=== PATIENT | male | born 1965 ===

== ENCOUNTER 2017-11-08 06:56 | Inpatient (IN) | payer MEDICAID ==
[2017-11-08] MEDS ORDERED: Sodium Chloride 0.9% 1,000 ML IV STA (07:27)
[2017-11-08] MEDS ORDERED: Iohexol 240 (50 ml) PO ONE (07:27)
--- NOTE | 2017-11-08 07:50 | ED PDOC ---
HPI: Abdomen Time Seen by Provider: 11/08/17 07:12 Chief Complaint (Nursing): Abdominal Pain Chief Complaint (Provider): abdominal pain History Per: Patient History/Exam Limitations: no limitations Onset/Duration Of Symptoms: Days (x1 week), Intermittent Episodes, Worse Since ( yesterday) Outside of [place] travel?: No Current Symptoms Are (Timing): Still Present Location Of Pain/Discomfort: Diffuse Quality Of Discomfort: "Pain" Associated Symptoms: denies: Fever, Chills, Nausea, Vomiting, Diarrhea, Back Pain, Chest Pain, Urinary Symptoms (dysuria) Additional Complaint(s): Rico De is a 52 year old male, with no significant past medical history, who presents to the emergency department complaining of a diffuse abdominal pain onset for x1 week. Patient states pain begins on the right side but spreads diffusely to the abdomen. He reports having a similar pain x1 week ago which resolved on its own but states pain came back yesterday and worsened which prompted ED visit. Patient took milk of magnesia but with no relief. He denies any recent travel or new foods. He denies any back pain, nausea, vomit, diarrhea, dysuria, testicular pain, headache, dizziness, numbness or tingling, weakness, chest pain or shortness of breath. No further medical complaints. PMD: [facility] [place] Past Medical History Reviewed: Historical Data, Nursing Documentation, Vital Signs Vital Signs: Last Vital Signs Temp 97.7 F 11/08/17 07:48 Pulse 61 11/08/17 07:48 Resp 18 11/08/17 07:48 BP 160/75 H 11/08/17 07:48 Pulse Ox 98 11/08/17 07:48 - Medical History PMH: No Chronic Diseases - Surgical History Surgical History: No Surg Hx - Family History Family History: States: No Known Family Hx - Social History Current smoker - smoking cessation education provided: No Alcohol: Social Drugs: Denies - Home Medications Home Medications: Ambulatory Orders Medication Instructions Recorded No Known Home Med 11/08/17 - Allergies Allergies/Adverse Reactions: Allergies Allergy/AdvReac Type Severity Reaction Status Date / Time No Known Allergies Allergy Verified 11/08/17 07:25 Review of Systems ROS Statement: Except As Marked, All Systems Reviewed And Found Negative Constitutional: Negative for: Fever, Chills Cardiovascular: Negative for: Chest Pain Respiratory: Negative for: Shortness of Breath Gastrointestinal: Positive for: Abdominal Pain. Negative for: Nausea, Vomiting , Diarrhea Genitourinary Male: Negative for: Dysuria, Scrotal Pain Musculoskeletal: Negative for: Back Pain Neurological: Negative for: Weakness, Numbness, Headache, Dizziness Physical Exam - Reviewed Nursing Documentation Reviewed: Yes Vital Signs Reviewed: Yes - Physical Exam Appears: Positive for: Non-toxic Head Exam: Positive for: ATRAUMATIC, NORMOCEPHALIC Skin: Positive for: Normal Color, Warm, Dry Eye Exam: Positive for: Normal appearance, EOMI, PERRL Neck: Positive for: Painless ROM Cardiovascular/Chest: Positive for: Regular Rate, Rhythm. Negative for: Murmur Respiratory: Positive for: Normal Breath Sounds. Negative for: Respiratory Distress Gastrointestinal/Abdominal: Positive for: Tenderness (right sided ) Back: Negative for: L CVA Tenderness, R CVA Tenderness, Vertebral Tenderness Extremity: Positive for: Normal ROM (upper and lower extremities). Negative for : Deformity, Swelling Neurologic/Psych: Positive for: Alert, Oriented. Negative for: Motor/Sensory Deficits - Laboratory Results Result Diagrams: 11/08/17 07:46 11/08/17 07:46 Interpretation Of Abn Labs: 3.3 lactate - Progress ED Course And Treament: 1250: Stable. AAOx3. Appendicitis and possible neoplasm. Surgery to see pt. Resident aware. Hospitalist jaz. Medical Decision Making Medical Decision Making: Time: 07:12 Initial Impression: abdominal pain Initial plan: --VBG --Abd Pelvis PO & IV Contrast [CT] --CMP --Lipase --Urine dip --CBC w/ differential --Omnipaque 240 50 ml PO --Toradol 15 mg IVP --Sodium Chloride 1,000 ml IV 1,000 mls/hr --Blood culture --Reevaluation Scribe Attestation: Documented by Yaw Merritt acting as a scribe for Michi Bird MD. Scribe Attestation: All medical record entries made by the Scribe were at my direction and personally dictated by me. I have reviewed the chart and agree that the record accurately reflects my personal performance of the history, physical exam, medical decision making, and the department course for this patient. I have also personally directed, reviewed, and agree with the discharge instructions and disposition. Disposition - Clinical Impression Clinical Impression: Appendicitis, Colon neoplasm - Patient ED Disposition Is Patient to be Admitted: Yes - Disposition Disposition Time: 12:58 Condition: FAIR - Pt Status Changed To: Hospital Disposition Of: Inpatient - Admit Certification Admit to Inpatient:: After my assessment, the patient will require hospitalization for at least two midnights. This is because of the severity of symptoms shown, intensity of services needed, and/or the medical risk in this patient being treated as an outpatient. - POA Present On Arrival: None
[2017-11-08 07:54] LABS: BASO # 0.1 K/uL (0.0-0.2); BASO % 0.8 % (0.0-2.0); EOS # 0.4 K/uL (0.0-0.7); EOS % 3.5 % (0.0-4.0); HEMOGLOBIN 15.8 g/dL (12.0-18.0); LYMPH # 1.8 K/uL (1.0-4.3); LYMPH % 16.7 % (20.0-40.0); MEAN CORPUSCULAR HEMOGLOBIN 28.8 pg (27.0-31.0); MEAN CORPUSCULAR HGB CONC 33.5 g/dL (33.0-37.0); MEAN PLATELET VOLUME 8.2 fl (7.2-11.7); MONO # 0.7 K/uL (0.0-0.8); MONO % 6.7 % (0.0-10.0); NEUT # 7.8 K/uL (1.8-7.0); NEUT % 72.3 % (50.0-75.0); RBC 5.47 Mil/uL (4.40-5.90); RED CELL DISTRIBUTION WIDTH 14.1 % (11.5-14.5); WHITE BLOOD COUNT 10.8 K/uL (4.8-10.8)
[2017-11-08 08:04] LABS: CALCIUM 9.5 mg/dL (8.4-10.2); GFR AFRICAN-AMERICAN > 60; GFR NON-AFRICAN AMERICAN > 60; LIPASE 57 U/L (23-300)
[2017-11-08 08:05] LABS: ALB/GLOB RATIO 1.2 (1.0-2.1); ALBUMIN 4.4 g/dL (3.5-5.0); ALT/SGPT 27 U/L (21-72); AST/SGOT 51 U/L (17-59); BLOOD UREA NITROGEN 13 mg/dl (9-20)
[2017-11-08 08:14] LABS: VENOUS BLOOD GAS BASE EXCESS 3.4 mmol/L (0.0-2.0); VENOUS BLOOD GAS PCO2 36 mmHg (40-60); VENOUS BLOOD GAS PO2 30 mm/Hg (30-55); VENOUS BLOOD PH 7.48 (7.32-7.43)
[2017-11-08] MEDS ORDERED: Iohexol 300 100 ML IJ ONE (08:54)
[2017-11-08] MEDS ORDERED: Sodium Chloride 0.9% 50 ML IV ONE (08:55)
--- NOTE | 2017-11-08 12:47 | CT ---
PROCEDURE: CT Abdomen and Pelvis with contrast HISTORY: abd pain COMPARISON: None. TECHNIQUE: Contrast dose: 95 mL Omnipaque 300 Radiation dose: Total exam DLP = 591.44 mGy-cm. This CT exam was performed using one or more of the following dose reduction techniques: Automated exposure control, adjustment of the mA and/or kV according to patient size, and/or use of iterative reconstruction technique. FINDINGS: LOWER THORAX: Unremarkable. LIVER: Normal size, contour and attenuation. Nonspecific 2.5 cm roughly ovoid lesion in the right hepatic lobe, for which further evaluation is advised on a nonemergent basis with multiphasic contrast-enhanced CT. No other hepatic mass identified. No biliary ductal dilatation. GALLBLADDER AND BILE DUCTS: Unremarkable. PANCREAS: Unremarkable. No gross lesion or ductal dilatation. SPLEEN: Unremarkable. ADRENALS: Unremarkable. No mass. KIDNEYS AND URETERS: 3 mm nonobstructing calculus lower pole right kidney and 3 mm nonobstructing calculus upper pole left kidney. No renal mass. No hydronephrosis. VASCULATURE: Unremarkable. No aortic aneurysm. BOWEL: Apple-core lesion of the mid ascending colon suspicious for neoplasm. This could also represent a focal colitis, however. Pericolonic inflammatory change is noted. Shotty subcentimeter pericolonic lymph nodes are identified. This is a nonspecific finding. There is a very small hiatal hernia. There is no bowel obstruction. There is minimal diverticulosis of the sigmoid colon. There is also mild mural thickening of the terminal ileum, again nonspecific. Differential diagnosis includes inflammatory bowel disease or infection. APPENDIX: The appendix is distended. The proximal aspect is filled with oral contrast material. However, the distal aspect is filled with low attenuation fluid and 8 tiny amount of gas. The appendix measures approximately 7 mm in diameter. There is no pham periappendiceal inflammatory change noted. Nevertheless, the findings are concerning for acute appendicitis. PERITONEUM: Unremarkable. No free fluid. No free air. LYMPH NODES: Unremarkable. No enlarged lymph nodes. BLADDER: Unremarkable. REPRODUCTIVE: Normal prostate BONES: No acute fracture. OTHER FINDINGS: None. IMPRESSION: Findings concerning for acute appendicitis. Findings concerning for neoplasm of the mid ascending colon. Recommend further evaluation with colonoscopy. Please correlate clinically for appendicitis. No periappendiceal abscess. Mural thickening of the terminal ileum, a nonspecific finding. See above. 2.5 cm low-attenuation lesion of the right hepatic lobe. Recommend nonemergent evaluation with multiphasic contrast enhanced CT. Additional minor findings as above.
[2017-11-08] MEDS ORDERED: Piperacillin/Tazobact 3.375 GM in Sodium Chloride 0.9% 100 ML IV STA (12:50)
[2017-11-08] MEDS ORDERED: Piperacillin/Tazobact 3.375 gm Inj IVPB ONE (12:57)
--- NOTE | 2017-11-08 13:50 | CP.PCM.CON ---
History of Present Illness - History of Present Illness History of Present Illness: Surgery Consult note. Dr. Vuong 52yo M with no significant PMHx here for evaluation of abdominal pain. Patient states that he has been having symptoms for the past 2 weeks. Initially, it began with some constipation and he took 1 bottle of Mag Citrate and started having regular bowel movements since then. For the past 4 days, he states that he has been having colicky, sharp RLQ pain which has been gradually getting worse, does not radiate. No associated N/V. No Diarrhea. Reports normal bowel movements, no bowel caliber changes. Denies any fevers, does report chills. Nothing makes the pain better or worse. Denies any recent weight gain or weight loss. No changes in appetite. No urinary complaints. Denies any Colonoscopy in the past. PMHx: Denies PSHx: Denies Family Hx: Son (26 years old) - Abdominal wall sarcoma. Denies any family history of Colon CA. Social Hx: Current smoker. Social ETOH use. Denies illicit drugs NKDA Review of Systems - Review of Systems All systems: reviewed and no additional remarkable complaints except - Constitutional Constitutional: Chills. absent: Fever, Increased Appetite, Weight Loss - Cardiovascular Cardiovascular: absent: Chest Pain, Dyspnea - Respiratory Respiratory: absent: Cough, Chest Congestion - Gastrointestinal Gastrointestinal: Abdominal Pain, Constipation. absent: Diarrhea, Loose Stools , Nausea, Vomiting - Genitourinary Genitourinary: absent: Difficulty Urinating, Dysuria - Musculoskeletal Musculoskeletal: absent: Back Pain Past Patient History - Infectious Disease Hx of Infectious Diseases: None - Past Medical History & Family History Past Medical History?: Yes - Past Social History Smoking Status: Current Some Days Smoker Alcohol: Social Drugs: Denies - PSYCHIATRIC Hx Substance Use: No - SURGICAL HISTORY Hx Surgeries: No - ANESTHESIA Hx Anesthesia: No Meds Allergies/Adverse Reactions: Allergies Allergy/AdvReac Type Severity Reaction Status Date / Time No Known Allergies Allergy Verified 11/08/17 07:25 - Medications Medications: Current Medications Piperacillin Sod/Tazobactam (Sod 3.375 gm/ Sodium Chloride) 100 mls @ 100 mls/ hr IV STAT STA PRN Reason: Protocol Stop: 11/08/17 13:49 Last Admin: 11/08/17 13:02 Dose: 100 mls/hr Physical Exam - Constitutional Appears: Well, Non-toxic, No Acute Distress - Head Exam Head Exam: ATRAUMATIC, NORMAL INSPECTION, NORMOCEPHALIC - Eye Exam Eye Exam: EOMI, Normal appearance - ENT Exam ENT Exam: Mucous Membranes Moist, Normal Exam - Respiratory Exam Respiratory Exam: NORMAL BREATHING PATTERN. absent: Accessory Muscle Use, Respiratory Distress - Cardiovascular Exam Cardiovascular Exam: RRR. absent: JVD - GI/Abdominal Exam GI & Abdominal Exam: Soft. absent: Firm, Guarding, Mass, Rebound Additional comments: mild distention. soft, non-tender to deep palpation. No rebound, no guarding. No peritoneal signs. - Extremities Exam Extremities exam: Positive for: normal inspection. Negative for: calf tenderness - Neurological Exam Neurological exam: Alert, Oriented x3 - Skin Skin Exam: Dry, Intact, Normal Color, Warm Results - Vital Signs Recent Vital Signs: Last Vital Signs Temp 97.7 F 11/08/17 07:48 Pulse 61 11/08/17 07:48 Resp 18 11/08/17 07:48 BP 160/75 H 11/08/17 07:48 Pulse Ox 98 11/08/17 07:48 - Labs Result Diagrams: 11/08/17 07:46 11/08/17 07:46 Labs: Laboratory Results - last 24 hr 11/08/17 11/08/17 11/08/17 07:46 07:46 08:00 WBC 10.8 RBC 5.47 Hgb 15.8 Hct 47.0 MCV 86.0 MCH 28.8 MCHC 33.5 RDW 14.1 Plt Count 253 MPV 8.2 Neut % (Auto) 72.3 Lymph % (Auto) 16.7 L Anderson % (Auto) 6.7 Eos % (Auto) 3.5 Baso % (Auto) 0.8 Neut # (Auto) 7.8 H Lymph # (Auto) 1.8 Anderson # (Auto) 0.7 Eos # (Auto) 0.4 Baso # (Auto) 0.1 pO2 30 VBG pH 7.48 H VBG pCO2 36 L VBG HCO3 26.7 VBG Total CO2 27.9 VBG O2 Sat (Calc) 71.7 H VBG Base Excess 3.4 H VBG Potassium 3.9 Glucose 147 H Lactate 3.3 H FiO2 21.0 Sodium 141 136.0 Potassium 5.1 H Chloride 101 106.0 Carbon Dioxide 24 Anion Gap 21 H BUN 13 Creatinine 0.9 Est GFR ( Amer) > 60 Est GFR (Non-Af Amer) > 60 Random Glucose 134 H Calcium 9.5 Total Bilirubin 1.2 AST 51 ALT 27 Alkaline Phosphatase 68 Total Protein 8.0 Albumin 4.4 Globulin 3.6 Albumin/Globulin Ratio 1.2 Lipase 57 Venous Blood Potassium 3.9 Assessment & Plan - Assessment and Plan (Free Text) Assessment: 52yo M with Abdominal pain, constipation. - CT Abd/Pelvis noted: suspicious findings of an Apple core lesion in the ascending colon. Mildly dilated cecum. No colonic obstruction. Some PO contrast in the proximal portion of the appendix, mild inflammatory changes of the distal appendix, dilated to 7mm. No apparent periappendiceal fat stranding. Plan: - NPO for now - IV Abx - IVF - f/u CEA level - f/u AM labs - Recommend GI eval. May benefit from colonoscopy. - We will follow patient's clinical status and make recommendations as warranted Further recs as per Dr. Jessica Chaparro PGY1 surgery pager: [phone]
--- NOTE | 2017-11-08 16:40 | CP.PCM.HP ---
History of Present Illness - History of Present Illness History of Present Illness: 52 yo male with no significant PMH came in complaining of RLQ pain, on and off, for the past 2 weeks. Denied fever, chills, nausea or vomiting. Present on Admission - Present on Admission Any Indicators Present on Admission: No History of DVT/PE: No History of Uncontrolled Diabetes: No Urinary Catheter: No Decubitus Ulcer Present: No Review of Systems - Review of Systems All systems: reviewed and no additional remarkable complaints except (aside from those mentioned above, 12 point system review were negative by me) Past Patient History - Infectious Disease Hx of Infectious Diseases: None - Past Medical History & Family History Past Medical History?: Yes - Past Social History Smoking Status: Current Some Days Smoker Alcohol: Social Drugs: Denies - CARDIAC Hx Cardiac Disorders: No - PULMONARY Hx Respiratory Disorders: No - NEUROLOGICAL Hx Neurological Disorder: No - HEENT Hx HEENT Problems: No - RENAL Hx Chronic Kidney Disease: No - ENDOCRINE/METABOLIC Hx Endocrine Disorders: No - HEMATOLOGICAL/ONCOLOGICAL Hx Blood Disorders: No - INTEGUMENTARY Hx Dermatological Problems: No - MUSCULOSKELETAL/RHEUMATOLOGICAL Hx Musculoskeletal Disorders: No - GASTROINTESTINAL Hx Gastrointestinal Disorders: No - GENITOURINARY/GYNECOLOGICAL Hx Genitourinary Disorders: No - PSYCHIATRIC Hx Psychophysiologic Disorder: No Hx Substance Use: No - SURGICAL HISTORY Hx Surgeries: No - ANESTHESIA Hx Anesthesia: No Meds Allergies/Adverse Reactions: Allergies Allergy/AdvReac Type Severity Reaction Status Date / Time No Known Allergies Allergy Verified 11/08/17 07:25 Physical Exam - Constitutional Appears: No Acute Distress - Head Exam Head Exam: ATRAUMATIC - Eye Exam Eye Exam: absent: Scleral icterus - ENT Exam ENT Exam: Mucous Membranes Moist - Neck Exam Neck exam: Negative for: Meningismus - Respiratory Exam Respiratory Exam: absent: Rales, Rhonchi, Wheezes, Respiratory Distress - Cardiovascular Exam Cardiovascular Exam: REGULAR RHYTHM, +S1, +S2 - GI/Abdominal Exam GI & Abdominal Exam: Soft. absent: Tenderness - Rectal Exam Rectal Exam: Deferred - Extremities Exam Extremities exam: Negative for: calf tenderness, pedal edema - Back Exam Back exam: NORMAL INSPECTION - Neurological Exam Neurological exam: Alert, Oriented x3 - Psychiatric Exam Psychiatric exam: Normal Affect - Skin Skin Exam: Dry, Intact Results - Vital Signs Recent Vital Signs: Last Vital Signs Temp 98.2 F 11/08/17 16:20 Pulse 65 11/08/17 16:20 Resp 18 11/08/17 16:20 BP 138/85 11/08/17 16:20 Pulse Ox 99 11/08/17 16:20 - Labs Result Diagrams: 11/08/17 07:46 11/08/17 07:46 Labs: Laboratory Results - last 24 hr 11/08/17 11/08/17 11/08/17 07:46 07:46 08:00 WBC 10.8 RBC 5.47 Hgb 15.8 Hct 47.0 MCV 86.0 MCH 28.8 MCHC 33.5 RDW 14.1 Plt Count 253 MPV 8.2 Neut % (Auto) 72.3 Lymph % (Auto) 16.7 L [place] % (Auto) 6.7 Eos % (Auto) 3.5 Baso % (Auto) 0.8 Neut # (Auto) 7.8 H Lymph # (Auto) 1.8 [place] # (Auto) 0.7 Eos # (Auto) 0.4 Baso # (Auto) 0.1 pO2 30 VBG pH 7.48 H VBG pCO2 36 L VBG HCO3 26.7 VBG Total CO2 27.9 VBG O2 Sat (Calc) 71.7 H VBG Base Excess 3.4 H VBG Potassium 3.9 Glucose 147 H Lactate 3.3 H FiO2 21.0 Sodium 141 136.0 Potassium 5.1 H Chloride 101 106.0 Carbon Dioxide 24 Anion Gap 21 H BUN 13 Creatinine 0.9 Est GFR ( Amer) > 60 Est GFR (Non-Af Amer) > 60 Random Glucose 134 H Calcium 9.5 Total Bilirubin 1.2 AST 51 ALT 27 Alkaline Phosphatase 68 Total Protein 8.0 Albumin 4.4 Globulin 3.6 Albumin/Globulin Ratio 1.2 Lipase 57 Venous Blood Potassium 3.9 Assessment & Plan - Assessment and Plan (Free Text) Assessment: 52 yo male with no significant PMH came in complaining of RLQ pain, on and off, for the past 2 weeks. Denied fever, chills, nausea or vomiting. 1. Acute Appendicitis appendix was distended but not inflammed continue Zosyn 1gm IV q 6hrs surgical consult called by ER maintain NPO IV hydration with NSS 125cc/hr 2. Colon Neoplasm GI consult with Dr Mtz
[2017-11-08] MEDS: Sodium Chloride 0.9% 1,000 ML IV SCH ×2 (20:16→23:30)
[2017-11-08] MEDS: Piperacillin/Tazobact 3.375 GM in Sodium Chloride 0.9% 100 ML IVPB SCH (21:15)
[2017-11-09] MEDS: Piperacillin/Tazobact 3.375 GM in Sodium Chloride 0.9% 100 ML IVPB SCH ×4 (03:41→21:25)
[2017-11-09 06:21] LABS: BASO % 0.6 % (0.0-2.0); EOS # 0.4 K/uL (0.0-0.7); EOS % 6.4 % (0.0-4.0); HEMOGLOBIN 14.6 g/dL (12.0-18.0); LYMPH # 1.5 K/uL (1.0-4.3); LYMPH % 26.6 % (20.0-40.0); MEAN CELL VOLUME 86.7 fl (80.0-94.0); MEAN CORPUSCULAR HEMOGLOBIN 28.5 pg (27.0-31.0); MEAN CORPUSCULAR HGB CONC 32.9 g/dL (33.0-37.0); MEAN PLATELET VOLUME 7.9 fl (7.2-11.7); MONO # 0.5 K/uL (0.0-0.8); MONO % 9.6 % (0.0-10.0); NEUT # 3.3 K/uL (1.8-7.0); NEUT % 56.8 % (50.0-75.0); NRBC % 0.1 % (0.0-0.0); RBC 5.12 Mil/uL (4.40-5.90); RED CELL DISTRIBUTION WIDTH 14.2 % (11.5-14.5); WHITE BLOOD COUNT 5.7 K/uL (4.8-10.8)
[2017-11-09] MEDS: Sodium Chloride 0.9% 1,000 ML IV SCH ×3 (06:24→15:32)
[2017-11-09 06:58] LABS: ALB/GLOB RATIO 1.2 (1.0-2.1); ALBUMIN 3.6 g/dL (3.5-5.0); ALT/SGPT 27 U/L (21-72); AST/SGOT 33 U/L (17-59); BLOOD UREA NITROGEN 10 mg/dl (9-20); CALCIUM 8.7 mg/dL (8.4-10.2); GFR AFRICAN-AMERICAN > 60; GFR NON-AFRICAN AMERICAN > 60
--- NOTE | 2017-11-09 08:22 | CP.PCM.CON ---
<Natali Gilbert - Last Filed: 11/09/17 10:24> History of Present Illness - History of Present Illness History of Present Illness: PGY4 Initial GI Consult Note Rico De is a 52M w/ no sig medical hx who presents to the ER due to abd pain. Pain is located in the RLQ. He notes that it initially started 2 weeks prior. It was initially gradual in onset, which then progressed to 10 out of 10 pain. He proceeded to take mag citrate which resolved his symptoms after a large BM. After 2 weeks, his abd again returned at the same location. In the interim. Pt notes his BMs are daily and his last one was yesterday. Denies any blood or melena. Denies any weightloss. Never had a colonoscopy or endoscopy. CT Abd in the ER revealed possible appendicitis, a apple-core lesion in the ascending colon and 2.5cm hepatic lesion. Pt notes that his abd pain has improved since admission. PMHx: Denies PSHx: Denies Family Hx: Son (26 years old) - Abdominal wall sarcoma. Denies any family history of Colon CA. Social Hx: Current smoker. Social ETOH use. Denies illicit drugs ROS: 12 point ROS conducted, neg other than above Past Patient History - Infectious Disease Hx of Infectious Diseases: None - Past Medical History & Family History Past Medical History?: Yes - Past Social History Smoking Status: Current Some Days Smoker Alcohol: Social Drugs: Denies - CARDIAC Hx Cardiac Disorders: No - PULMONARY Hx Respiratory Disorders: No - NEUROLOGICAL Hx Neurological Disorder: No - HEENT Hx HEENT Problems: No - RENAL Hx Chronic Kidney Disease: No - ENDOCRINE/METABOLIC Hx Endocrine Disorders: No - HEMATOLOGICAL/ONCOLOGICAL Hx Blood Disorders: No - INTEGUMENTARY Hx Dermatological Problems: No - MUSCULOSKELETAL/RHEUMATOLOGICAL Hx Musculoskeletal Disorders: No Hx Falls: No - GASTROINTESTINAL Hx Gastrointestinal Disorders: No - GENITOURINARY/GYNECOLOGICAL Hx Genitourinary Disorders: No - PSYCHIATRIC Hx Substance Use: No - SURGICAL HISTORY Hx Surgeries: No - ANESTHESIA Hx Anesthesia: No Meds Allergies/Adverse Reactions: Allergies Allergy/AdvReac Type Severity Reaction Status Date / Time No Known Allergies Allergy Verified 11/08/17 07:25 - Medications Medications: Current Medications Sodium Chloride (Sodium Chloride 0.9%) 1,000 mls @ 125 mls/hr IV .Q8H JODI Stop: 11/09/17 15:30 Last Admin: 11/09/17 06:24 Dose: 125 mls/hr Piperacillin Sod/Tazobactam (Sod 3.375 gm/ Sodium Chloride) 100 mls @ 100 mls/ hr IVPB Q6 JODI PRN Reason: Protocol Last Admin: 11/09/17 03:41 Dose: 100 mls/hr Morphine Sulfate (Morphine) 2 mg IVP Q4 PRN PRN Reason: Pain, moderate (4-7) Last Admin: 11/08/17 20:21 Dose: 2 mg Morphine Sulfate (Morphine) 2 mg IVP Q4 PRN PRN Reason: Pain, moderate (4-7) Ondansetron HCl (Zofran Inj) 4 mg IVP Q6 PRN PRN Reason: Nausea/Vomiting Polyethylene Glycol/Electrolytes (Golytely) 4,000 ml PO ONCE ONE Stop: 11/09/17 13:01 Physical Exam - Constitutional Appears: Well, No Acute Distress - Head Exam Head Exam: ATRAUMATIC, NORMOCEPHALIC - Eye Exam Eye Exam: Normal appearance, PERRL - ENT Exam ENT Exam: Mucous Membranes Moist, Normal Exam - Neck Exam Neck exam: Positive for: Normal Inspection - Respiratory Exam Respiratory Exam: Clear to Auscultation Bilateral, NORMAL BREATHING PATTERN. absent: Rales, Rhonchi, Wheezes, Respiratory Distress - Cardiovascular Exam Cardiovascular Exam: REGULAR RHYTHM, +S1, +S2 - GI/Abdominal Exam GI & Abdominal Exam: Normal Bowel Sounds, Soft. absent: Diminished Bowel Sounds , Distended, Firm, Guarding, Hernia, Organomegaly, Rigid, Tenderness - Rectal Exam Rectal Exam: NORMAL INSPECTION - Extremities Exam Extremities exam: Negative for: joint swelling, pedal edema - Back Exam Back exam: NORMAL INSPECTION - Neurological Exam Neurological exam: Alert, Oriented x3 - Skin Skin Exam: Dry, Intact, Normal Color, Warm Results - Vital Signs Recent Vital Signs: Last Vital Signs Temp 97.6 F 11/09/17 07:46 Pulse 67 11/09/17 07:46 Resp 19 11/09/17 07:46 BP 139/87 11/09/17 07:46 Pulse Ox 98 11/09/17 07:46 - Labs Result Diagrams: 11/09/17 06:00 11/09/17 06:00 Labs: Laboratory Results - last 24 hr 11/08/17 11/09/1718 16:49 06:00 06:00 WBC 5.7 RBC 5.12 Hgb 14.6 Hct 44.4 MCV 86.7 MCH 28.5 MCHC 32.9 L RDW 14.2 Plt Count 206 MPV 7.9 Neut % (Auto) 56.8 Lymph % (Auto) 26.6 Franklin % (Auto) 9.6 Eos % (Auto) 6.4 H Baso % (Auto) 0.6 Neut # (Auto) 3.3 Lymph # (Auto) 1.5 Franklin # (Auto) 0.5 Eos # (Auto) 0.4 Baso # (Auto) 0.0 Sodium 139 Potassium 3.8 Chloride 103 Carbon Dioxide 25 Anion Gap 15 BUN 10 Creatinine 1.0 Est GFR ( Amer) > 60 Est GFR (Non-Af Amer) > 60 Random Glucose 107 Calcium 8.7 Total Bilirubin 1.3 AST 33 ALT 27 Alkaline Phosphatase 61 Total Protein 6.7 Albumin 3.6 Globulin 3.1 Albumin/Globulin Ratio 1.2 Carcinoembryonic Ag 15.4 H Assessment & Plan - Assessment and Plan (Free Text) Assessment: Rico De is a 52M w/ no sig medical hx who presents to the ER with RLQ abd pain Possible ascending colon mass Liver lesion Cecal colitis constipation Plan: -start in clears -no signs of obstruction -start bowel prep today, dulcolax 10mg tab prior -colonoscopy likely tomorrow 11/10/17 -surgery on board -rest of plan as per colonoscopy findings -NPO after midnight will D/W Dr. Mtz <Teresita Mtz - Last Filed: 11/09/17 11:05> Meds - Medications Medications: Current Medications Sodium Chloride (Sodium Chloride 0.9%) 1,000 mls @ 125 mls/hr IV .Q8H JODI Stop: 11/09/17 15:30 Last Admin: 11/09/17 10:02 Dose: Not Given Piperacillin Sod/Tazobactam (Sod 3.375 gm/ Sodium Chloride) 100 mls @ 100 mls/ hr IVPB Q6 JODI PRN Reason: Protocol Last Admin: 11/09/17 10:03 Dose: 100 mls/hr Morphine Sulfate (Morphine) 2 mg IVP Q4 PRN PRN Reason: Pain, moderate (4-7) Last Admin: 11/08/17 20:21 Dose: 2 mg Morphine Sulfate (Morphine) 2 mg IVP Q4 PRN PRN Reason: Pain, moderate (4-7) Ondansetron HCl (Zofran Inj) 4 mg IVP Q6 PRN PRN Reason: Nausea/Vomiting Polyethylene Glycol/Electrolytes (Golytely) 4,000 ml PO ONCE ONE Stop: 11/09/17 13:01 Results - Vital Signs Recent Vital Signs: Last Vital Signs Temp 97.6 F 11/09/17 07:46 Pulse 67 11/09/17 07:46 Resp 19 11/09/17 07:46 BP 139/87 11/09/17 07:46 Pulse Ox 98 11/09/17 07:46 - Labs Result Diagrams: 11/09/17 06:00 11/09/17 06:00 Labs: Laboratory Results - last 24 hr 11/08/17 11/09/17 11/09/17 16:49 06:00 06:00 WBC 5.7 RBC 5.12 Hgb 14.6 Hct 44.4 MCV 86.7 MCH 28.5 MCHC 32.9 L RDW 14.2 Plt Count 206 MPV 7.9 Neut % (Auto) 56.8 Lymph % (Auto) 26.6 Franklin % (Auto) 9.6 Eos % (Auto) 6.4 H Baso % (Auto) 0.6 Neut # (Auto) 3.3 Lymph # (Auto) 1.5 Franklin # (Auto) 0.5 Eos # (Auto) 0.4 Baso # (Auto) 0.0 PT INR Sodium 139 Potassium 3.8 Chloride 103 Carbon Dioxide 25 Anion Gap 15 BUN 10 Creatinine 1.0 Est GFR ( Amer) > 60 Est GFR (Non-Af Amer) > 60 Random Glucose 107 Calcium 8.7 Total Bilirubin 1.3 AST 33 ALT 27 Alkaline Phosphatase 61 Total Protein 6.7 Albumin 3.6 Globulin 3.1 Albumin/Globulin Ratio 1.2 Carcinoembryonic Ag 15.4 H 11/09/17 10:35 WBC RBC Hgb Hct MCV MCH MCHC RDW Plt Count MPV Neut % (Auto) Lymph % (Auto) Franklin % (Auto) Eos % (Auto) Baso % (Auto) Neut # (Auto) Lymph # (Auto) Franklin # (Auto) Eos # (Auto) Baso # (Auto) PT 10.3 INR 0.9 Sodium Potassium Chloride Carbon Dioxide Anion Gap BUN Creatinine Est GFR ( Amer) Est GFR (Non-Af Amer) Random Glucose Calcium Total Bilirubin AST ALT Alkaline Phosphatase Total Protein Albumin Globulin Albumin/Globulin Ratio Carcinoembryonic Ag Attending/Attestation - Attestation I have personally seen and examined this patient.: Yes I have fully participated in the care of the patient.: Yes I have reviewed all pertinent clinical information: Yes Notes (Text): 11/09/17 11:03 This is a 52 year old M with no significant medical history who presents to the ER with RLQ abdominal pain with imaging suggestive of ascending colon mass and a single liver lesion. Scheduled colonoscopy in am to rule out mass and for possible biopsies. No change in bowel habits or rectal bleeding or bowel obstruction. Clear liquid diet today and start prep for colonoscopy in am.
[2017-11-09] MEDS ORDERED: Bisacodyl 5mg EC Tab PO ONE (10:30)
[2017-11-09 11:01] LABS: INR 0.9 (0.9-1.2); PROTHROMBIN TIME 10.3 Seconds (9.8-13.1)
[2017-11-09 12:30] LABS: SQUAMOUS EPITHIAL 1 /hpf (0-5); URINE BILIRUBIN NEGATIVE (NEGATIVE); URINE BLOOD NEGATIVE (NEGATIVE); URINE CALCIUM OXALATE CRYSTALS FEW /hpf (<OCC); URINE CLARITY SLIGHTY-CLOUDY (Clear); URINE COLOR YELLOW (YELLOW); URINE GLUCOSE (UA) NEG (Normal); URINE LEUKOCYTE ESTERASE NEG Leu/uL (Negative); URINE PROTEIN NEGATIVE (NEGATIVE); URINE UROBILINOGEN 0.2-1.0 mg/dL (0.2-1.0)
[2017-11-09] MEDS ORDERED: Peg-Electrolyte Oral Soln 4L (Golytely) PO ONE (13:00)
--- NOTE | 2017-11-09 17:37 | CP.PCM.PN ---
Subjective - Date & Time of Evaluation Date of Evaluation: 11/09/17 Time of Evaluation: 11:45 - Subjective Subjective: Patient seen and examined. Denied any pain today. Tolerated liquid diet Objective - Vital Signs/Intake and Output Vital Signs (last 24 hours): Temp Pulse Resp BP Pulse Ox 98.2 F 90 18 123/84 97 11/09/17 16:29 11/09/17 16:29 11/09/17 16:29 11/09/17 16:29 11/09/17 16:29 - Medications Medications: Current Medications Piperacillin Sod/Tazobactam (Sod 3.375 gm/ Sodium Chloride) 100 mls @ 100 mls/ hr IVPB Q6 JODI PRN Reason: Protocol Last Admin: 11/09/17 15:32 Dose: 100 mls/hr Morphine Sulfate (Morphine) 2 mg IVP Q4 PRN PRN Reason: Pain, moderate (4-7) Last Admin: 11/08/17 20:21 Dose: 2 mg Morphine Sulfate (Morphine) 2 mg IVP Q4 PRN PRN Reason: Pain, moderate (4-7) Ondansetron HCl (Zofran Inj) 4 mg IVP Q6 PRN PRN Reason: Nausea/Vomiting - Labs Labs: 11/09/17 06:00 11/09/17 06:00 PT 10.3 Seconds (9.8-13.1) 11/09/17 10:35 INR 0.9 (0.9-1.2) 11/09/17 10:35 - Constitutional Appears: No Acute Distress - Head Exam Head Exam: ATRAUMATIC - Eye Exam Eye Exam: absent: Scleral icterus - ENT Exam ENT Exam: Mucous Membranes Moist - Neck Exam Neck Exam: absent: Meningismus - Respiratory Exam Respiratory Exam: absent: Rales, Rhonchi, Wheezes, Respiratory Distress - Cardiovascular Exam Cardiovascular Exam: REGULAR RHYTHM, +S1, +S2 - GI/Abdominal Exam GI & Abdominal Exam: Soft. absent: Tenderness - Rectal Exam Rectal Exam: Deferred - Extremities Exam Extremities Exam: absent: Calf Tenderness, Pedal Edema - Back Exam Back Exam: NORMAL INSPECTION - Neurological Exam Neurological Exam: Alert, Oriented x3 - Psychiatric Exam Psychiatric exam: Normal Affect - Skin Skin Exam: Dry, Intact Assessment and Plan - Assessment and Plan (Free Text) Assessment: 52 yo male with no significant PMH came in complaining of RLQ pain, on and off, for the past 2 weeks. Denied fever, chills, nausea or vomiting. 1. Acute Appendicitis appendix was distended but not inflammed case probably not an appendicitis but would continue IV antibiotics for the meantime continue Zosyn 1gm IV q 6hrs surgery on consult and following patient tolerated liquid diet, NPO from midnight IV hydration with NSS 125cc/hr 2. 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
[2017-11-10] MEDS: Sodium Chloride 0.9% 1,000 ML IV SCH (01:57)
[2017-11-10] MEDS: Piperacillin/Tazobact 3.375 GM in Sodium Chloride 0.9% 100 ML IVPB SCH ×2 (04:31→10:05)
[2017-11-10] MEDS ORDERED: Lactated Ringer's 500 ML IV ONE ×2 (07:34→08:35)
[2017-11-10] MEDS ORDERED: Propofol 10 mg/ml Inj (20 ML) ONE (07:54)
--- NOTE | 2017-11-10 08:43 | CP.PCM.PN ---
Subjective - Date & Time of Evaluation Date of Evaluation: 11/10/17 Time of Evaluation: 07:00 - Subjective Subjective: Surgery Progress note- Dr. Vuong No acute events overnight. Patient scheduled for colonoscopy today with GI. Bowel prep complete. Objective - Vital Signs/Intake and Output Vital Signs (last 24 hours): Temp Pulse Resp BP Pulse Ox 97.9 F 73 12 134/77 99 11/10/17 07:32 11/10/17 07:32 11/10/17 07:32 11/10/17 07:32 11/10/17 07:32 Intake and Output: 11/10/17 11/10/17 06:59 18:59 Intake Total 550 Balance 550 - Medications Medications: Current Medications Piperacillin Sod/Tazobactam (Sod 3.375 gm/ Sodium Chloride) 100 mls @ 100 mls/ hr IVPB Q6 JODI PRN Reason: Protocol Last Admin: 11/10/17 04:31 Dose: 100 mls/hr Morphine Sulfate (Morphine) 2 mg IVP Q4 PRN PRN Reason: Pain, moderate (4-7) Last Admin: 11/08/17 20:21 Dose: 2 mg Morphine Sulfate (Morphine) 2 mg IVP Q4 PRN PRN Reason: Pain, moderate (4-7) Ondansetron HCl (Zofran Inj) 4 mg IVP Q6 PRN PRN Reason: Nausea/Vomiting - Labs Labs: 11/09/17 06:00 11/09/17 06:00 PT 10.3 Seconds (9.8-13.1) 11/09/17 10:35 INR 0.9 (0.9-1.2) 11/09/17 10:35 - Constitutional Appears: Non-toxic, No Acute Distress - Head Exam Head Exam: ATRAUMATIC - Eye Exam Eye Exam: EOMI. absent: Scleral icterus - ENT Exam ENT Exam: Mucous Membranes Moist - Respiratory Exam Respiratory Exam: NORMAL BREATHING PATTERN. absent: Accessory Muscle Use, Respiratory Distress - Cardiovascular Exam Cardiovascular Exam: +S1, +S2. absent: Bradycardia, Tachycardia - GI/Abdominal Exam GI & Abdominal Exam: Soft, Tenderness (tender RLQ). absent: Firm, Guarding, Rigid - Extremities Exam Extremities Exam: Normal Inspection. absent: Calf Tenderness - Neurological Exam Neurological Exam: Alert, Awake, Oriented x3 - Skin Skin Exam: Intact, Warm Assessment and Plan - Assessment and Plan (Free Text) Assessment: 52yo M with Abdominal pain, constipation, cecal mass found on CT scan. - CT Abd/Pelvis noted: suspicious findings of an Apple core lesion in the ascending colon. Mildly dilated cecum. Some PO contrast in the proximal portion of the appendix, mild inflammatory changes of the distal appendix, dilated to 7mm. No apparent periappendiceal fat stranding. Plan: - Colonoscopy today with GI team - nearly obstructing mass at the cecal valve - biopsies taken by the GI team - follow up pathology final results - plan for surgery on Monday - discussed plan with patient. Patient is very concerned about his son and is potentially trying to sign out again medical advice. Patient is agreeable to surgery. Explained risks of leaving hospital at this time. - discussed with Dr. Vuong surgical attending PGY1
[2017-11-10 08:47] VITALS: RESP 19; O2SAT 100
--- NOTE | 2017-11-10 08:49 | CP.PCM.PN ---
<Natali Gilbert - Last Filed: 11/10/17 13:02> Subjective - Date & Time of Evaluation Date of Evaluation: 11/10/17 Time of Evaluation: 07:00 - Subjective Subjective: PGY4 GI Follow-up Pt seen and examined bedside Denies any abd pain tolerated prep Denies any nausea or vomiting ROS: 12 point ROS conducted, neg other than above Objective - Vital Signs/Intake and Output Vital Signs (last 24 hours): Temp Pulse Resp BP Pulse Ox 96.7 F L 56 L 19 130/87 100 11/10/17 08:37 11/10/17 08:37 11/10/17 08:37 11/10/17 08:37 11/10/17 08:37 Intake and Output: 11/10/17 11/10/17 06:59 18:59 Intake Total 550 Balance 550 - Medications Medications: Current Medications Piperacillin Sod/Tazobactam (Sod 3.375 gm/ Sodium Chloride) 100 mls @ 100 mls/ hr IVPB Q6 JODI PRN Reason: Protocol Last Admin: 11/10/17 04:31 Dose: 100 mls/hr Morphine Sulfate (Morphine) 2 mg IVP Q4 PRN PRN Reason: Pain, moderate (4-7) Last Admin: 11/08/17 20:21 Dose: 2 mg Morphine Sulfate (Morphine) 2 mg IVP Q4 PRN PRN Reason: Pain, moderate (4-7) Ondansetron HCl (Zofran Inj) 4 mg IVP Q6 PRN PRN Reason: Nausea/Vomiting - Labs Labs: 11/09/17 06:00 11/09/17 06:00 PT 10.3 Seconds (9.8-13.1) 11/09/17 10:35 INR 0.9 (0.9-1.2) 11/09/17 10:35 - Constitutional Appears: Well, No Acute Distress - Head Exam Head Exam: ATRAUMATIC, NORMOCEPHALIC - Eye Exam Eye Exam: Normal appearance - ENT Exam ENT Exam: Mucous Membranes Moist, Normal Exam - Respiratory Exam Respiratory Exam: Clear to Ausculation Bilateral, NORMAL BREATHING PATTERN. absent: Rales, Rhonchi, Wheezes, Respiratory Distress - Cardiovascular Exam Cardiovascular Exam: REGULAR RHYTHM, +S1, +S2 - GI/Abdominal Exam GI & Abdominal Exam: Soft, Normal Bowel Sounds. absent: Distended, Firm, Guarding, Rigid, Tenderness, Organomegaly - Rectal Exam Rectal Exam: NORMAL INSPECTION - Extremities Exam Extremities Exam: absent: Joint Swelling, Pedal Edema - Neurological Exam Neurological Exam: Alert, Awake, Oriented x3 - Psychiatric Exam Psychiatric exam: Normal Affect, Normal Mood - Skin Skin Exam: Normal Color, Warm Assessment and Plan - Assessment and Plan (Free Text) Assessment: Rico De is a 52M w/ no sig medical hx who presents to the ER with RLQ abd pain. 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 Mtz as an oupt -full report in chart D/W Dr. Mtz <Teresita Mtz - Last Filed: 11/10/17 13:21> Objective - Vital Signs/Intake and Output Vital Signs (last 24 hours): Temp Pulse Resp BP Pulse Ox 97 F L 55 L 19 124/78 100 11/10/17 09:13 11/10/17 09:13 11/10/17 09:13 11/10/17 09:13 11/10/17 09:13 Intake and Output: 11/10/17 11/10/17 06:59 18:59 Intake Total 650 Balance 650 - Medications Medications: Current Medications Piperacillin Sod/Tazobactam (Sod 3.375 gm/ Sodium Chloride) 100 mls @ 100 mls/ hr IVPB Q6 JODI PRN Reason: Protocol Last Admin: 11/10/17 10:05 Dose: 100 mls/hr Morphine Sulfate (Morphine) 2 mg IVP Q4 PRN PRN Reason: Pain, moderate (4-7) Last Admin: 11/08/17 20:21 Dose: 2 mg Morphine Sulfate (Morphine) 2 mg IVP Q4 PRN PRN Reason: Pain, moderate (4-7) Ondansetron HCl (Zofran Inj) 4 mg IVP Q6 PRN PRN Reason: Nausea/Vomiting - Labs Labs: 11/10/17 10:41 11/10/17 10:41 PT 10.8 Seconds (9.8-13.1) 11/10/17 10:41 INR 1.0 (0.9-1.2) 11/10/17 10:41 Attending/Attestation - Attestation I have personally seen and examined this patient.: Yes I have fully participated in the care of the patient.: Yes I have reviewed all pertinent clinical information, including history, physical exam and plan: Yes Notes (Text): 11/10/17 13:19 This is a 52 yr old M w/ no sig medical hx who presents to the ER with RLQ abd pain s/p Colonoscopy near obstructing ileocecal mass, could not transverse, s/p biopsy and tattoo Do metastatic work up. discussed with the surgeon. Get oncology and follow up biopsies. Fulll report in chart. F/U pathology. F/U as outpatient in the office if no surgery planned in this hospitalization
[2017-11-10 09:13] VITALS: TEMP 97
[2017-11-10 09:15] VITALS: BP 124/78; PULSE 55
--- NOTE | 2017-11-10 10:38 | CP.PCM.PN ---
Subjective - Date & Time of Evaluation Date of Evaluation: 11/09/17 Time of Evaluation: 08:00 - Subjective Subjective: Patient seen and examined. No acute events over night. Scheduled for colonoscopy tomorrow morning. Bowel regimen prep started. Objective - Vital Signs/Intake and Output Vital Signs (last 24 hours): Temp Pulse Resp BP Pulse Ox 97 F L 55 L 19 124/78 100 11/10/17 09:13 11/10/17 09:13 11/10/17 09:13 11/10/17 09:13 11/10/17 09:13 Intake and Output: 11/10/17 11/10/17 06:59 18:59 Intake Total 650 Balance 650 - Medications Medications: Current Medications Piperacillin Sod/Tazobactam (Sod 3.375 gm/ Sodium Chloride) 100 mls @ 100 mls/ hr IVPB Q6 JODI PRN Reason: Protocol Last Admin: 11/10/17 10:05 Dose: 100 mls/hr Morphine Sulfate (Morphine) 2 mg IVP Q4 PRN PRN Reason: Pain, moderate (4-7) Last Admin: 11/08/17 20:21 Dose: 2 mg Morphine Sulfate (Morphine) 2 mg IVP Q4 PRN PRN Reason: Pain, moderate (4-7) Ondansetron HCl (Zofran Inj) 4 mg IVP Q6 PRN PRN Reason: Nausea/Vomiting - Labs Labs: 11/09/17 06:00 11/09/17 06:00 PT 10.3 Seconds (9.8-13.1) 11/09/17 10:35 INR 0.9 (0.9-1.2) 11/09/17 10:35 - Constitutional Appears: No Acute Distress - Head Exam Head Exam: NORMOCEPHALIC - Eye Exam Eye Exam: EOMI, Normal appearance - Respiratory Exam Respiratory Exam: NORMAL BREATHING PATTERN - Cardiovascular Exam Cardiovascular Exam: +S1, +S2 - Neurological Exam Neurological Exam: Alert, Awake, Oriented x3 - Psychiatric Exam Psychiatric exam: Normal Mood - Skin Skin Exam: Dry, Intact, Normal Color, Warm Assessment and Plan - Assessment and Plan (Free Text) Assessment: 52yo M with cecal mass Plan: - NPO - IV Abx - IVF -For colonoscopy tomorrow - f/u AM labs - F/u colonoscopy results Further recs as per Dr. Yevgeniy Masters PGY2
[2017-11-10 10:54] LABS: BASO % 0.7 % (0.0-2.0); EOS # 0.2 K/uL (0.0-0.7); EOS % 3.8 % (0.0-4.0); HEMOGLOBIN 15.3 g/dL (12.0-18.0); LYMPH # 1.2 K/uL (1.0-4.3); LYMPH % 22.1 % (20.0-40.0); MEAN CELL VOLUME 86.6 fl (80.0-94.0); MEAN CORPUSCULAR HEMOGLOBIN 28.2 pg (27.0-31.0); MEAN CORPUSCULAR HGB CONC 32.6 g/dL (33.0-37.0); MEAN PLATELET VOLUME 8.1 fl (7.2-11.7); MONO # 0.4 K/uL (0.0-0.8); MONO % 6.8 % (0.0-10.0); NEUT # 3.7 K/uL (1.8-7.0); NEUT % 66.6 % (50.0-75.0); RBC 5.41 Mil/uL (4.40-5.90); WHITE BLOOD COUNT 5.5 K/uL (4.8-10.8)
[2017-11-10 11:08] LABS: ALB/GLOB RATIO 1.1 (1.0-2.1); ALT/SGPT 29 U/L (21-72); AST/SGOT 37 U/L (17-59); BLOOD UREA NITROGEN 8 mg/dl (9-20); CALCIUM 9.1 mg/dL (8.4-10.2); GFR AFRICAN-AMERICAN > 60; GFR NON-AFRICAN AMERICAN > 60
[2017-11-10 11:18] LABS: PROTHROMBIN TIME 10.8 Seconds (9.8-13.1)
[2017-11-10] MEDS ORDERED: Iohexol 300 100 ML IJ ONE (14:49)
[2017-11-10] MEDS ORDERED: Sodium Chloride 0.9% 100 ML ONE (14:49)
--- NOTE | 2017-11-10 14:56 | NM ---
PROCEDURE: Whole Body Bone Scan HISTORY: colon mass, r/o mets COMPARISON: None available. TECHNIQUE: Following administration of 24.2 miCu of Tc MDP multiplanar whole body images were obtained. FINDINGS: Evidence for bony metastatic disease: None. Degenerative uptake: Bilateral knees left greater than right Physiologic uptake: Normal physiologic activity in the kidneys. Other findings: None. IMPRESSION: No evidence of bony metastatic disease.
--- NOTE | 2017-11-10 15:54 | CP.PCM.DIS ---
Provider - Provider Date of Admission: 11/08/17 13:04 Attending physician: Isael Joaquin MD Primary care physician: Wenceslao Morocho MD Consults: Surgery : Dr Vuong GI: Smith Time Spent in preparation of Discharge (in minutes): 40 Diagnosis - Discharge Diagnosis (1) Colon neoplasm Status: Acute (2) Liver lesion Status: Acute (3) Constipation Status: Acute Hospital Course - Lab Results Lab Results: Micro Results 11/08/17 08:00 Blood-Venous Blood Culture - Preliminary NO GROWTH AFTER 48 HOURS 11/08/17 07:30 Blood-Venous Blood Culture - Preliminary NO GROWTH AFTER 48 HOURS Most Recent Lab Values WBC 5.5 K/uL (4.8-10.8) 11/10/17 10:41 RBC 5.41 Mil/uL (4.40-5.90) 11/10/17 10:41 Hgb 15.3 g/dL (12.0-18.0) 11/10/17 10:41 Hct 46.9 % (35.0-51.0) 11/10/17 10:41 MCV 86.6 fl (80.0-94.0) 11/10/17 10:41 MCH 28.2 pg (27.0-31.0) 11/10/17 10:41 MCHC 32.6 g/dL (33.0-37.0) L 11/10/17 10:41 RDW 14.0 % (11.5-14.5) 11/10/17 10:41 Plt Count 229 K/uL (130-400) 11/10/17 10:41 MPV 8.1 fl (7.2-11.7) 11/10/17 10:41 Neut % (Auto) 66.6 % (50.0-75.0) 11/10/17 10:41 Lymph % (Auto) 22.1 % (20.0-40.0) 11/10/17 10:41 [place] % (Auto) 6.8 % (0.0-10.0) 11/10/17 10:41 Eos % (Auto) 3.8 % (0.0-4.0) 11/10/17 10:41 Baso % (Auto) 0.7 % (0.0-2.0) 11/10/17 10:41 Neut # (Auto) 3.7 K/uL (1.8-7.0) 11/10/17 10:41 Lymph # (Auto) 1.2 K/uL (1.0-4.3) 11/10/17 10:41 [place] # (Auto) 0.4 K/uL (0.0-0.8) 11/10/17 10:41 Eos # (Auto) 0.2 K/uL (0.0-0.7) 11/10/17 10:41 Baso # (Auto) 0.0 K/uL (0.0-0.2) 11/10/17 10:41 PT 10.8 Seconds (9.8-13.1) 11/10/17 10:41 INR 1.0 (0.9-1.2) 11/10/17 10:41 pO2 30 mm/Hg (30-55) 11/08/17 08:00 VBG pH 7.48 (7.32-7.43) H 11/08/17 08:00 VBG pCO2 36 mmHg (40-60) L 11/08/17 08:00 VBG HCO3 26.7 mmol/L 11/08/17 08:00 VBG Total CO2 27.9 mmol/L (22-28) 11/08/17 08:00 VBG O2 Sat (Calc) 71.7 % (40-65) H 11/08/17 08:00 VBG Base Excess 3.4 mmol/L (0.0-2.0) H 11/08/17 08:00 VBG Potassium 3.9 mmol/L (3.6-5.2) 11/08/17 08:00 Sodium 136.0 mmol/L (132-148) 11/08/17 08:00 Chloride 106.0 mmol/L (98-107) 11/08/17 08:00 Glucose 147 mg/dL (75-110) H 11/08/17 08:00 Lactate 3.3 mmol/L (0.7-2.1) H 11/08/17 08:00 FiO2 21.0 % 11/08/17 08:00 Sodium 140 mmol/l (132-148) 11/10/17 10:41 Potassium 4.2 MMOL/L (3.6-5.0) 11/10/17 10:41 Chloride 102 mmol/L (98-107) 11/10/17 10:41 Carbon Dioxide 26 mmol/L (22-30) 11/10/17 10:41 Anion Gap 16 (10-20) 11/10/17 10:41 BUN 8 mg/dl (9-20) L 11/10/17 10:41 Creatinine 1.0 mg/dl (0.8-1.5) 11/10/17 10:41 Est GFR ( Amer) > 60 11/10/17 10:41 Est GFR (Non-Af Amer) > 60 11/10/17 10:41 Random Glucose 117 mg/dL (75-110) H 11/10/17 10:41 Calcium 9.1 mg/dL (8.4-10.2) 11/10/17 10:41 Total Bilirubin 1.1 mg/dl (0.2-1.3) 11/10/17 10:41 AST 37 U/L (17-59) 11/10/17 10:41 ALT 29 U/L (21-72) 11/10/17 10:41 Alkaline Phosphatase 65 U/L (38-126) 11/10/17 10:41 Total Protein 7.6 G/DL (6.3-8.2) 11/10/17 10:41 Albumin 4.0 g/dL (3.5-5.0) 11/10/17 10:41 Globulin 3.6 gm/dL (2.2-3.9) 11/10/17 10:41 Albumin/Globulin Ratio 1.1 (1.0-2.1) 11/10/17 10:41 Lipase 57 U/L (23-300) 11/08/17 07:46 Carcinoembryonic Ag 15.4 ng/mL (0-3.0) H 11/08/17 16:49 Venous Blood Potassium 3.9 mmol/L (3.6-5.2) 11/08/17 08:00 Urine Color Yellow (YELLOW) 11/09/17 12:00 Urine Clarity Slighty-cloudy (Clear) 11/09/17 12:00 Urine pH 6.0 (5.0-8.0) 11/09/17 12:00 Ur Specific [place] 1.027 (1.003-1.030) 11/09/17 12:00 Urine Protein Negative mg/dL (NEGATIVE) 11/09/17 12:00 Urine Glucose (UA) Neg mg/dL (Normal) 11/09/17 12:00 Urine Ketones Negative mg/dL (NEGATIVE) 11/09/17 12:00 Urine Blood Negative (NEGATIVE) 11/09/17 12:00 Urine Nitrate Negative (NEGATIVE) 11/09/17 12:00 Urine Bilirubin Negative (NEGATIVE) 11/09/17 12:00 Urine Urobilinogen 0.2-1.0 mg/dL (0.2-1.0) 11/09/17 12:00 Ur Leukocyte Esterase Neg Eliu/uL (Negative) 11/09/17 12:00 Urine RBC (Auto) 3 /hpf (0-3) 11/09/17 12:00 Urine Microscopic WBC 2 /hpf (0-5) 11/09/17 12:00 Ur Squamous Epith Cells 1 /hpf (0-5) 11/09/17 12:00 Calcium Oxalate Crystal Few /hpf (<OCC) H 11/09/17 12:00 - Hospital Course Hospital Course: 52 y/o gent with no significant PMH, came in bec of RLQ abdominal pain. CT scan of the abd : suspicious findings of an Apple core lesion in the ascending colon. Mildly dilated cecum. No colonic obstruction. Some PO contrast in the proximal portion of the appendix, mild inflammatory changes of the distal appendix, dilated to 7mm. No apparent periappendiceal fat stranding. (1) Ileocecal Mass very suspicious for malignancy Status: Acute Acute AP ruled out GI consulted Colonoscopy done today 11/10 - noted Obstructing Ileocecal Mass, biopsy done Surgery consulted- plan for Surgery on Monday CT of Chest to r/o mets Lesion seen in liver ? mets Bone scan : no mets Hematology consult Had long discussion with pt regarding findings on Colonoscopy- discussed that likely malignancy and plan for surgery- pt agrees to plan however , he wants to go home and take care of some personal issues and he plans to come back within 4 hrs . ( his son has cancer and is on chemotherapy at [facility] - he will just make arrangements for somebody to take care of his son and will come back svetlana ) . Discussed risks , including possibility of . Pt signed AMA despites all explanation. (2) Liver lesion ? metastatic Status: Acute needs further work up (3) Constipation Status: Acute Discharge Exam - Head Exam Head Exam: ATRAUMATIC, NORMAL INSPECTION, NORMOCEPHALIC - Eye Exam Eye Exam: EOMI, Normal appearance, PERRL Pupil Exam: NORMAL ACCOMODATION - ENT Exam ENT Exam: Mucous Membranes Moist, Normal External Ear Exam - Neck Exam Neck exam: Full Rom - Respiratory Exam Respiratory Exam: NORMAL BREATHING PATTERN. absent: Respiratory Distress - Cardiovascular Exam Cardiovascular Exam: REGULAR RHYTHM, +S1, +S2 - GI/Abdominal Exam GI & Abdominal Exam: Normal Bowel Sounds, Soft. absent: Tenderness - Extremities Exam Extremities exam: full ROM, normal capillary refill, pedal pulses present - Back Exam Back exam: FULL ROM. absent: CVA tenderness (L), CVA tenderness (R) - Neurological Exam Neurological exam: Alert, CN II-XII Intact, Normal Gait, Oriented x3, Reflexes Normal - Psychiatric Exam Psychiatric exam: Normal Affect, Normal Mood - Skin Skin Exam: Dry, Normal Color, Warm Discharge Plan - Follow Up Plan Condition: STABLE Disposition: AGAINST MEDICAL ADVICE Instructions: Appendicitis, Adult (DC) Referrals: Teresita Mtz MD [Medical Doctor] - Court Ritchie MD [Medical Doctor] - Justino Vuong MD [Staff Provider] -
--- NOTE | 2017-11-10 16:22 | CT ---
PROCEDURE: CT Chest with contrast HISTORY: colon mass, staging COMPARISON: 11/08/2017 CT abdomen and pelvis TECHNIQUE: Contiguous axial images were obtained through the chest with intravenous contrast enhancement. Sagittal and coronal reconstructions were performed. IV contrast: 95 cc Omnipaque 300 Radiation dose (DLP): 359.96 mGy-cm. This CT exam was performed using one or more of the following dose reduction techniques: Automated exposure control, adjustment of the mA and/or kV according to patient size, and/or use of iterative reconstruction technique. FINDINGS: LUNGS: Clear lungs. Visualized airway clear. MEDIASTINUM: Unremarkable thoracic aorta. No aneurysm or dissection. Normal sized heart. Main pulmonary artery unremarkable. No vascular congestion. No lymphadenopathy. PLEURA: No pleural fluid. No pneumothorax. BONES: No fracture. No destructive lesion. UPPER ABDOMEN: Questionable mass in the right hepatic lobe 1.7 x 3 cm. Please refer to axial series 2, image 121. This is seen in a background of hepatic steatosis. This does not have typical appearance of a metastatic lesion. OTHER FINDINGS: None. IMPRESSION: No evidence of metastatic disease in the thorax. Confirmation of mass in the right hepatic lobe seen on recent CT abdomen and pelvis. The finding is nonspecific on this single phase study.
== END 2017-11-10 13:30 | disposition left against medical advice (07) | DRG 375 ==
LOC: H.ER 06:56 → H.ERHOLD 13:04 → H.MEDSURG1 15:17
PROC: 0DBC8ZX Excision of Ileocecal Valve, Via Natural or Artificial Opening Endoscopic, Diagnostic (ICD-10-PCS; principal; 2017-11-10 07:45)
DX: C18.0 Malignant neoplasm of cecum (principal); K56.690 Other partial intestinal obstruction; K52.9 Noninfective gastroenteritis and colitis, unspecified; K59.00 Constipation, unspecified; F17.200 Nicotine dependence, unspecified, uncomplicated; K76.9 Liver disease, unspecified; K64.8 Other hemorrhoids

== ENCOUNTER 2017-11-12 08:42 | Inpatient (IN) | payer MEDICAID, OTHER ==
[2017-11-12 08:50] VITALS: BMI 26.5
[2017-11-12 09:53] LABS: BASO % 0.8 % (0.0-2.0); EOS # 0.2 K/uL (0.0-0.7); EOS % 4.1 % (0.0-4.0); HEMOGLOBIN 14.5 g/dL (12.0-18.0); LYMPH # 1.3 K/uL (1.0-4.3); LYMPH % 27.2 % (20.0-40.0); MEAN CELL VOLUME 85.9 fl (80.0-94.0); MEAN CORPUSCULAR HEMOGLOBIN 28.4 pg (27.0-31.0); MEAN CORPUSCULAR HGB CONC 33.1 g/dL (33.0-37.0); MEAN PLATELET VOLUME 7.8 fl (7.2-11.7); MONO # 0.5 K/uL (0.0-0.8); MONO % 10.6 % (0.0-10.0); NEUT # 2.8 K/uL (1.8-7.0); NEUT % 57.3 % (50.0-75.0); NRBC % 0.1 % (0.0-0.0); RBC 5.1 Mil/uL (4.40-5.90); WHITE BLOOD COUNT 4.9 K/uL (4.8-10.8)
--- NOTE | 2017-11-12 10:12 | ED PDOC ---
HPI: Abdomen Time Seen by Provider: 11/12/17 09:05 Chief Complaint (Nursing): Abdominal Pain Chief Complaint (Provider): Abdominal Pain History Per: Patient History/Exam Limitations: no limitations Onset/Duration Of Symptoms: Days Quality Of Discomfort: Unable To Describe Additional Complaint(s): 52 year old male presents to the ED after signing out AMA last week. Patient was admitted after finding a mass in his abdomen. Patient is now scheduled for surgery tomorrow to remove the mass. Denies fever, nausea, vomiting, abdominal pain, constipation, and diarrhea. PMD: Court Ritchie Past Medical History Reviewed: Historical Data, Nursing Documentation, Vital Signs Vital Signs: Last Vital Signs Temp 97.9 F 11/13/17 16:19 Pulse 68 11/13/17 16:19 Resp 18 11/13/17 16:19 BP 136/84 11/13/17 16:19 Pulse Ox 98 11/13/17 16:19 - Medical History PMH: No Chronic Diseases Denies: Chronic Kidney Disease - Surgical History Surgical History: No Surg Hx - Family History Family History: States: Unknown Family Hx - Home Medications Home Medications: Ambulatory Orders Medication Instructions Recorded No Known Home Med 11/08/17 - Allergies Allergies/Adverse Reactions: Allergies Allergy/AdvReac Type Severity Reaction Status Date / Time No Known Allergies Allergy Verified 11/08/17 07:25 Review of Systems ROS Statement: Except As Marked, All Systems Reviewed And Found Negative Constitutional: Negative for: Fever Gastrointestinal: Positive for: Other (abdominal mass removal ). Negative for: Nausea, Vomiting, Abdominal Pain, Diarrhea, Constipation Physical Exam - Reviewed Nursing Documentation Reviewed: Yes Vital Signs Reviewed: Yes - Physical Exam Appears: Positive for: Non-toxic, No Acute Distress Head Exam: Positive for: ATRAUMATIC, NORMOCEPHALIC Skin: Positive for: Normal Color, Warm, Dry Eye Exam: Positive for: Normal appearance, EOMI, PERRL ENT: Positive for: Normal ENT Inspection Neck: Positive for: Normal, Painless ROM, Supple Cardiovascular/Chest: Positive for: Regular Rate, Rhythm. Negative for: Murmur Respiratory: Positive for: Normal Breath Sounds. Negative for: Respiratory Distress Gastrointestinal/Abdominal: Positive for: Normal Exam, Soft. Negative for: Tenderness Back: Positive for: Normal Inspection. Negative for: L CVA Tenderness, R CVA Tenderness, Vertebral Tenderness Extremity: Positive for: Normal ROM. Negative for: Pedal Edema, Deformity Neurologic/Psych: Positive for: Alert, Oriented. Negative for: Motor/Sensory Deficits - Laboratory Results Result Diagrams: 11/13/17 05:30 11/13/17 05:30 - ECG O2 Sat by Pulse Oximetry: 97 (RA) Pulse Ox Interpretation: Normal Medical Decision Making Medical Decision Making: Time: 929 Plan: -- ABO/RH Type -- Type and Screen -- CMP -- CBC with differentials -- PTT -- Prothrombin Time Time: 1007 Plan: -- Urinalysis -- CXR Two Views -- EKG Case discussed with resident engineer, admit for OR tomorrow. Time: 105 CXR RESULTS FINDINGS: LUNGS: No active pulmonary disease. PLEURA: No significant pleural effusion identified. No pneumothorax apparent. CARDIOVASCULAR: Normal. OSSEOUS STRUCTURES: No significant abnormalities. VISUALIZED UPPER ABDOMEN: Normal. OTHER FINDINGS: None. IMPRESSION: No interval acute cardiopulmonary disease appreciated. Scribe Attestation: Documented by Sumeet Dorado, acting as a scribe for Dr. Yeni Mccabe MD. Provider Scribe Attestation: All medical record entries made by the Scribe were at my direction and personally dictated by me. I have reviewed the chart and agree that the record accurately reflects my personal performance of the history, physical exam, medical decision making, and the department course for this patient. I have also personally directed, reviewed, and agree with the discharge instructions and disposition. Disposition - Clinical Impression Clinical Impression: Colonic mass - Patient ED Disposition Is Patient to be Admitted: Yes - Disposition Disposition Time: 10:07 Condition: STABLE - Pt Status Changed To: Hospital Disposition Of: Inpatient - Admit Certification Admit to Inpatient:: After my assessment, the patient will require hospitalization for at least two midnights. This is because of the severity of symptoms shown, intensity of services needed, and/or the medical risk in this patient being treated as an outpatient. - POA Present On Arrival: None
[2017-11-12 10:14] LABS: ALB/GLOB RATIO 1.2 (1.0-2.1); ALBUMIN 3.9 g/dL (3.5-5.0); ALT/SGPT 30 U/L (21-72); AST/SGOT 25 U/L (17-59); BLOOD UREA NITROGEN 14 mg/dl (9-20); CALCIUM 9.3 mg/dL (8.4-10.2); GFR AFRICAN-AMERICAN > 60; GFR NON-AFRICAN AMERICAN > 60
[2017-11-12 10:20] LABS: INR 0.9 (0.9-1.2); PROTHROMBIN TIME 10.4 Seconds (9.8-13.1)
--- NOTE | 2017-11-12 10:55 | RAD ---
HISTORY: Pre op COMPARISON: Chest CT 11/10/2017. TECHNIQUE: Chest PA and lateral FINDINGS: LUNGS: No active pulmonary disease. PLEURA: No significant pleural effusion identified. No pneumothorax apparent. CARDIOVASCULAR: Normal. OSSEOUS STRUCTURES: No significant abnormalities. VISUALIZED UPPER ABDOMEN: Normal. OTHER FINDINGS: None. IMPRESSION: No interval acute cardiopulmonary disease appreciated.
[2017-11-12 12:49] LABS: URINE BILIRUBIN NEGATIVE (NEGATIVE); URINE BLOOD NEGATIVE (NEGATIVE); URINE CLARITY CLOUDY (Clear); URINE COLOR AMBER (YELLOW); URINE GLUCOSE (UA) NEG (Normal); URINE LEUKOCYTE ESTERASE NEG Leu/uL (Negative); URINE PROTEIN NEGATIVE (NEGATIVE); URINE UROBILINOGEN 0.2-1.0 mg/dL (0.2-1.0)
[2017-11-12] MEDS ORDERED: Peg-Electrolyte Oral Soln 4L (Golytely) PO ONE (13:39)
[2017-11-12] MEDS ORDERED: Sodium Chloride 0.9% 1,000 ML IV SCH (13:45)
--- NOTE | 2017-11-12 15:15 | CP.PCM.CON ---
History of Present Illness - History of Present Illness History of Present Illness: This is a 52 year old male with no significant past medical history who was previously admitted to the hospital on 11/08/17 with the complaint of on again, off again, RLQ abdominal pain for the last 2 weeks. The patient was worked up and found to have an Ileocecal mass very suspicious for malignancy. A colonoscopy was done on 11/11 with a noted obstructing ileocecal mass and a biopsy was done. Surgeon, Dr. Lopez, was consulted and planned for surgery on monday. However the patient initally left AMA and this morning came back to the hospital. Today, the patient states that he feels well and has been having good BM without further pain. We are consulted for medical risk assessment from the surgical team who is primary. Patient denies chest pain, shortness of breath , fevers, chills, nausea, vomiting, diarrhea, headache. All of the patient's questions were answered at the bedside. Review of Systems - Review of Systems Review of Systems: A 12 point review of systems was conducted and found to be neg other than what was mentioned in the HPI. Past Patient History - Infectious Disease Hx of Infectious Diseases: None - Past Medical History & Family History Past Medical History?: Yes - Past Social History Smoking Status: Never Smoked Alcohol: None Drugs: Denies Home Situation {Lives}: With Family - CARDIAC Hx Cardiac Disorders: No - PULMONARY Hx Respiratory Disorders: No - NEUROLOGICAL Hx Neurological Disorder: No - HEENT Hx HEENT Problems: No - RENAL Hx Chronic Kidney Disease: No - ENDOCRINE/METABOLIC Hx Endocrine Disorders: No - HEMATOLOGICAL/ONCOLOGICAL Hx AIDS: No Hx Human Immunodeficiency Virus (HIV): No - INTEGUMENTARY Hx Dermatological Problems: No - MUSCULOSKELETAL/RHEUMATOLOGICAL Hx Falls: No - GASTROINTESTINAL Hx Gastrointestinal Disorders: No - GENITOURINARY/GYNECOLOGICAL Hx Genitourinary Disorders: No - PSYCHIATRIC Hx Substance Use: No - SURGICAL HISTORY Hx Surgeries: No - ANESTHESIA Hx Anesthesia: No Meds Allergies/Adverse Reactions: Allergies Allergy/AdvReac Type Severity Reaction Status Date / Time No Known Allergies Allergy Verified 11/08/17 07:25 - Medications Medications: Current Medications Acetaminophen (Tylenol 325mg Tab) 650 mg PO Q6 PRN PRN Reason: Fever >100.4 F Famotidine (Pepcid) 20 mg PO BID JODI Hydromorphone HCl (Dilaudid) 0.5 mg IVP Q6 PRN PRN Reason: Pain, moderate (4-7) Sodium Chloride (Sodium Chloride 0.9%) 1,000 mls @ 100 mls/hr IV .Q10H JODI Ketorolac Tromethamine (Toradol) 30 mg IVP Q6 PRN PRN Reason: Pain, severe (8-10) Ondansetron HCl (Zofran Inj) 4 mg IVP Q6 PRN PRN Reason: Nausea/Vomiting Physical Exam - Additional Findings Additional findings: Physical exam: Constitutional- cooperative, awake, alert Head- NCAT, PERRL Eye- PERRL, EOMI ENT- normal exam, MMM. Neck- normal inspection, supple, no JVD Respiratory- CTAB, no wheezes rales rhonchi Cardiovascular- RRR, +S1, +S2 no MRG GI/Abdominal- normal bowel sounds, soft, no mass, no hsm Skin- warm, dry Extremities Exam- normal capillary refill, normal inspection Neurological Exam- alert, awake, oriented Psych- normal mood, normal affect Results - Vital Signs Recent Vital Signs: Last Vital Signs Temp 98.0 F 11/12/17 12:00 Pulse 68 11/12/17 12:00 Resp 16 11/12/17 14:03 BP 112/79 11/12/17 12:00 Pulse Ox 100 11/12/17 12:00 - Labs Result Diagrams: 11/12/17 09:40 11/12/17 09:40 Labs: Laboratory Results - last 24 hr 11/12/17 11/12/17 11/12/17 09:40 09:40 09:40 WBC 4.9 RBC 5.10 Hgb 14.5 Hct 43.8 MCV 85.9 MCH 28.4 MCHC 33.1 RDW 14.0 Plt Count 195 MPV 7.8 Neut % (Auto) 57.3 Lymph % (Auto) 27.2 [place] % (Auto) 10.6 H Eos % (Auto) 4.1 H Baso % (Auto) 0.8 Neut # (Auto) 2.8 Lymph # (Auto) 1.3 [place] # (Auto) 0.5 Eos # (Auto) 0.2 Baso # (Auto) 0.0 PT 10.4 INR 0.9 APTT 30.0 Sodium 139 Potassium 4.1 Chloride 102 Carbon Dioxide 27 Anion Gap 14 BUN 14 Creatinine 0.9 Est GFR ( Amer) > 60 Est GFR (Non-Af Amer) > 60 Random Glucose 127 H Calcium 9.3 Total Bilirubin 0.8 AST 25 ALT 30 Alkaline Phosphatase 50 Total Protein 7.2 Albumin 3.9 Globulin 3.3 Albumin/Globulin Ratio 1.2 Urine Color Urine Clarity Urine pH Ur Specific [place] Urine Protein Urine Glucose (UA) Urine Ketones Urine Blood Urine Nitrate Urine Bilirubin Urine Urobilinogen Ur Leukocyte Esterase Urine RBC (Auto) Urine Microscopic WBC Urine Yeast (Budding) Blood Type Antibody Screen BBK History Checked 11/12/17 11/12/17 09:40 12:22 WBC RBC Hgb Hct MCV MCH MCHC RDW Plt Count MPV Neut % (Auto) Lymph % (Auto) [place] % (Auto) Eos % (Auto) Baso % (Auto) Neut # (Auto) Lymph # (Auto) [place] # (Auto) Eos # (Auto) Baso # (Auto) PT INR APTT Sodium Potassium Chloride Carbon Dioxide Anion Gap BUN Creatinine Est GFR ( Amer) Est GFR (Non-Af Amer) Random Glucose Calcium Total Bilirubin AST ALT Alkaline Phosphatase Total Protein Albumin Globulin Albumin/Globulin Ratio Urine Color [place] Urine Clarity Cloudy Urine pH 6.0 Ur Specific [place] 1.016 Urine Protein Negative Urine Glucose (UA) Neg Urine Ketones Negative Urine Blood Negative Urine Nitrate Negative Urine Bilirubin Negative Urine Urobilinogen 0.2-1.0 Ur Leukocyte Esterase Neg Urine RBC (Auto) 3 Urine Microscopic WBC 4 Urine Yeast (Budding) Occ H Blood Type A POSITIVE Antibody Screen Negative BBK History Checked No verified bt Assessment & Plan - Assessment and Plan (Free Text) Plan: 52 y/o gent with no significant PMH, came in bec of RLQ abdominal pain, now admitted for apple core lesion in the ascending colon; for surgery in AM CT scan of the abd : suspicious findings of an Apple core lesion in the ascending colon. Mildly dilated cecum. No colonic obstruction. Some PO contrast in the proximal portion of the appendix, mild inflammatory changes of the distal appendix, dilated to 7mm. No apparent periappendiceal fat stranding. 1) Ileocecal mass suspicious for malignancy - Patient is at acceptable risk for surgery as he is hemodynamically stable with normal labs, no evidence of acute infection, and no medical problems in the past - Toradol/Dilaudid being given PRN for pain - Liquid diet - Pepcid 20 mg po BID - IV NS @ 100 - NPO at midnight for Surgery with Dr. Lopez in AM - Patient was notified about the liver lesion found on previous scan and importance of close follow up 2) Constipation - Resolved 3) DVT prophylaxis - SCDs
--- NOTE | 2017-11-12 16:04 | CP.PCM.HP ---
History of Present Illness - History of Present Illness History of Present Illness: H&P- Dr. Vuong 52M w/ no significant pmhx initially presented to [facility] on 11/08/17 with intermitted RLQ pain for 2 weeks. During hospital course patient had a colonoscopy which revealed a nearly obstructing mass at the ileoceal junction. Patient left AMA and has returned to the ER. Pt complaining of continued abdominal pain. Pain is moderately improved. Denies current: fevers, chills, chest pain, shortness of breath, nausea, vomiting, diarrhea, changes in urinary and bowel habits PMH: denies PSH: none ALL: NKDA SocialHx: social ETOH, + tobacco use, denies recreational drug use FH: son ABD wall [place] 12 point review of systems conducted, negative otherwise noted above Present on Admission - Present on Admission Any Indicators Present on Admission: No Review of Systems - Review of Systems All systems: reviewed and no additional remarkable complaints except - Constitutional Constitutional: As Per HPI Past Patient History - Infectious Disease Hx of Infectious Diseases: None - Past Medical History & Family History Past Medical History?: Yes - Past Social History Smoking Status: Never Smoked Alcohol: None Drugs: Denies Home Situation {Lives}: With Family - CARDIAC Hx Cardiac Disorders: No - PULMONARY Hx Respiratory Disorders: No - NEUROLOGICAL Hx Neurological Disorder: No - HEENT Hx HEENT Problems: No - RENAL Hx Chronic Kidney Disease: No - ENDOCRINE/METABOLIC Hx Endocrine Disorders: No - HEMATOLOGICAL/ONCOLOGICAL Hx AIDS: No Hx Human Immunodeficiency Virus (HIV): No - INTEGUMENTARY Hx Dermatological Problems: No - MUSCULOSKELETAL/RHEUMATOLOGICAL Hx Falls: No - GASTROINTESTINAL Hx Gastrointestinal Disorders: No - GENITOURINARY/GYNECOLOGICAL Hx Genitourinary Disorders: No - PSYCHIATRIC Hx Substance Use: No - SURGICAL HISTORY Hx Surgeries: No - ANESTHESIA Hx Anesthesia: No Meds Allergies/Adverse Reactions: Allergies Allergy/AdvReac Type Severity Reaction Status Date / Time No Known Allergies Allergy Verified 11/08/17 07:25 Physical Exam - Constitutional Appears: Non-toxic, No Acute Distress - Head Exam Head Exam: ATRAUMATIC - Eye Exam Eye Exam: EOMI. absent: Scleral icterus Pupil Exam: PERRL - ENT Exam ENT Exam: Mucous Membranes Moist - Respiratory Exam Respiratory Exam: NORMAL BREATHING PATTERN. absent: Accessory Muscle Use, Rales , Rhonchi, Wheezes, Respiratory Distress - Cardiovascular Exam Cardiovascular Exam: REGULAR RHYTHM, RRR, +S1, +S2. absent: Bradycardia, Tachycardia, Gallop, Rubs - GI/Abdominal Exam GI & Abdominal Exam: Soft, Tenderness (tender to deep palpation in RLQ). absent : Distended, Firm, Guarding, Hernia, Rebound, Rigid - Extremities Exam Extremities exam: Positive for: normal inspection. Negative for: calf tenderness - Neurological Exam Neurological exam: Alert, Oriented x3 - Psychiatric Exam Psychiatric exam: Normal Affect - Skin Skin Exam: Intact, Normal Color Results - Vital Signs Recent Vital Signs: Last Vital Signs Temp 98.0 F 11/12/17 12:00 Pulse 68 11/12/17 12:00 Resp 16 11/12/17 14:03 BP 112/79 11/12/17 12:00 Pulse Ox 100 11/12/17 12:00 - Labs Result Diagrams: 11/12/17 09:40 11/12/17 09:40 Labs: Laboratory Results - last 24 hr 11/12/17 11/12/17 11/12/17 09:40 09:40 09:40 WBC 4.9 RBC 5.10 Hgb 14.5 Hct 43.8 MCV 85.9 MCH 28.4 MCHC 33.1 RDW 14.0 Plt Count 195 MPV 7.8 Neut % (Auto) 57.3 Lymph % (Auto) 27.2 [place] % (Auto) 10.6 H Eos % (Auto) 4.1 H Baso % (Auto) 0.8 Neut # (Auto) 2.8 Lymph # (Auto) 1.3 [place] # (Auto) 0.5 Eos # (Auto) 0.2 Baso # (Auto) 0.0 PT 10.4 INR 0.9 APTT 30.0 Sodium 139 Potassium 4.1 Chloride 102 Carbon Dioxide 27 Anion Gap 14 BUN 14 Creatinine 0.9 Est GFR ( Amer) > 60 Est GFR (Non-Af Amer) > 60 Random Glucose 127 H Calcium 9.3 Total Bilirubin 0.8 AST 25 ALT 30 Alkaline Phosphatase 50 Total Protein 7.2 Albumin 3.9 Globulin 3.3 Albumin/Globulin Ratio 1.2 Urine Color Urine Clarity Urine pH Ur Specific [place] Urine Protein Urine Glucose (UA) Urine Ketones Urine Blood Urine Nitrate Urine Bilirubin Urine Urobilinogen Ur Leukocyte Esterase Urine RBC (Auto) Urine Microscopic WBC Urine Yeast (Budding) Blood Type Antibody Screen BBK History Checked 11/12/17 11/12/17 09:40 12:22 WBC RBC Hgb Hct MCV MCH MCHC RDW Plt Count MPV Neut % (Auto) Lymph % (Auto) [place] % (Auto) Eos % (Auto) Baso % (Auto) Neut # (Auto) Lymph # (Auto) [place] # (Auto) Eos # (Auto) Baso # (Auto) PT INR APTT Sodium Potassium Chloride Carbon Dioxide Anion Gap BUN Creatinine Est GFR ( Amer) Est GFR (Non-Af Amer) Random Glucose Calcium Total Bilirubin AST ALT Alkaline Phosphatase Total Protein Albumin Globulin Albumin/Globulin Ratio Urine Color Mayra Urine Clarity Cloudy Urine pH 6.0 Ur Specific [place] 1.016 Urine Protein Negative Urine Glucose (UA) Neg Urine Ketones Negative Urine Blood Negative Urine Nitrate Negative Urine Bilirubin Negative Urine Urobilinogen 0.2-1.0 Ur Leukocyte Esterase Neg Urine RBC (Auto) 3 Urine Microscopic WBC 4 Urine Yeast (Budding) Occ H Blood Type A POSITIVE Antibody Screen Negative BBK History Checked No verified bt Assessment & Plan - Assessment and Plan (Free Text) Assessment: 52M w/ ileocecal mass Plan: - Plan for OR tomorrow for R. Hemicolectomy - NPO after MN - IVF - bowel prep; natasha-yannick prep - Abx - Pain control & anti-emetic PRN - GI ppx - f/u AM labs - type and screen - Medically cleared for Surgery - discussed w/ Dr. Yevgeniy Haines PGY1
[2017-11-12] MEDS: Erythromycin Stearat 250 mg Tab PO SCH ×2 (21:17→23:09)
[2017-11-12] MEDS: Sodium Chloride 0.9% 1,000 ML IV SCH (23:58)
[2017-11-13 06:22] LABS: HEMOGLOBIN 14.5 g/dL (12.0-18.0); MEAN CELL VOLUME 85.7 fl (80.0-94.0); MEAN CORPUSCULAR HEMOGLOBIN 28.6 pg (27.0-31.0); MEAN CORPUSCULAR HGB CONC 33.4 g/dL (33.0-37.0); RBC 5.06 Mil/uL (4.40-5.90); RED CELL DISTRIBUTION WIDTH 13.9 % (11.5-14.5); WHITE BLOOD COUNT 7.7 K/uL (4.8-10.8)
[2017-11-13 06:33] LABS: PARTIAL THROMBOPLASTIN TIME 30.2 Seconds (25.6-37.1); PROTHROMBIN TIME 11.4 Seconds (9.8-13.1)
[2017-11-13 06:37] LABS: BLOOD UREA NITROGEN 12 mg/dl (9-20); CALCIUM 8.6 mg/dL (8.4-10.2); GFR AFRICAN-AMERICAN > 60; GFR NON-AFRICAN AMERICAN > 60
[2017-11-13] MEDS ORDERED: Erythromycin Stearat 250 mg Tab PO ONE (07:00)
[2017-11-13] MEDS: Sodium Chloride 0.9% 1,000 ML IV SCH (09:51)
--- NOTE | 2017-11-13 11:38 | CARD ---
APPROVED REPORT EKG Measurement Heart [id number] <Conclusion> Normal sinus rhythm Normal ECG
[2017-11-13] MEDS ORDERED: Rocuronium 10 mg/ml (5 ml) ONE ×2 (15:44→18:36)
[2017-11-13] MEDS ORDERED: Propofol 10 mg/ml Inj (20 ML) ONE (15:44)
[2017-11-13] MEDS ORDERED: Succinylcholine 200 mg/10 ml Inj IV ONE (15:44)
[2017-11-13] MEDS ORDERED: Lidocaine 4% (Laryng-O-Jet) Kit MM ONE (15:45)
[2017-11-13] MEDS ORDERED: Lidocaine 2% Inj (20ml) ONE (16:13)
[2017-11-13] MEDS ORDERED: Bupivacaine HCl 0.25% PF (30 ml) Inj ONE ×2 (16:13→18:32)
[2017-11-13] MEDS ORDERED: GELATIN SPONGE,ABSORB/PORCINE 1 EACH SPONGE TP ONE (16:14)
[2017-11-13] MEDS ORDERED: Neostigmine 1:1000 (1 mg/ml) Inj ONE (16:20)
[2017-11-13] MEDS ORDERED: Midazolam 2 MG/2 ML VIAL ONE (16:20)
[2017-11-13] MEDS ORDERED: Lidocaine 1% 5ml Abboject IV ONE (16:22)
[2017-11-13] MEDS ORDERED: Lactated Ringer's 1,000 ML IV ONE ×2 (17:30→19:51)
[2017-11-13] MEDS ORDERED: Lidocaine 2% Inj (20ml) IJ ONE (17:53)
[2017-11-13] MEDS ORDERED: Bupivacaine 0.25% Inj(30mL) IJ ONE (17:53)
[2017-11-13] MEDS ORDERED: Ropivacaine 0.5% 30ML IV ONE (18:32)
[2017-11-13] MEDS ORDERED: Dexamethasone 4 mg/1 ml ONE (18:36)
[2017-11-13] MEDS ORDERED: Sodium Chloride 0.9% 1,000 ML IV ONE (19:00)
--- NOTE | 2017-11-13 19:46 | PCM.SURG1 ---
Surgeon's Initial Post Op Note - Surgeon's Notes Surgeon: Dr. Vuong Industrial Arts Teacher: Gerry PGY2, PGY1 Type of Anesthesia: General Endo Pre-Operative Diagnosis: Ileocecal mass Operative Findings: Mass tattooed. Multiple adhesions. Mobilization of the hepatic flexuture. for details see op note Post-Operative Diagnosis: as above Operation Performed: Open Right hemicolectomy with primary anastamosis. Moore insertion Specimen/Specimens Removed: Right Colon Estimated Blood Loss: EBL {In ML}: 100 Drains Used: No Drains Post-Op Condition: Fair Date of Surgery/Procedure: 11/13/17 Time of Surgery/Procedure: 19:46
--- NOTE | 2017-11-13 19:55 | PCM.ANESB5 ---
Transverse Abdominis Block - Transverse Abdominis Plane Date of Procedure: 11/13/17 Anesthesiologist: Benjy Pre-Procedure Diagnosis: Colon mass s/p ex-lap Post-Procedure Diagnosis: Same Procedure Performed: Transverse Abdominis Plane Nerve Block Left, Transverse Abdominis Plane Nerve Block Right - Procedure Transverse Abdominis Plane Nerve Block: The procedure was explained to the patient that it is for post-operative pain management and would be performed after surgery. Consent was obtained prior to surgery after a thorough discussion with the patient regarding the benefits and possible complications of transverse abdominis plane block. After the surgery had concluded and before the patient emerged from general anesthesia, time-out was held with the circulating nurse to re-confirm the appropriate block. With the patient in supine position, the ultrasound probe was placed transverse to the abdominal wall at the mid-axillary line above the iliac crest of the appropriate side. The skin, subcutaneous tissue, fat, external oblique muscle, internal oblique muscle, and the transverse abdominis muscle were identified. The general area of the block site was then prepped with Betadine three times. At this point, a # 21-gauge Stimuplex 4-inch needle was inserted posterior to and in plane with the ultrasound probe and directed anteriorly. Needle was advanced under direct ultrasound visualization until it reached the plane between the internal oblique and transverse abdominis muscles. After appropriate placement, 2mL of local anesthetic solution was injected. When the transverse abdominis plane was observed expanding in an ellipsoid way, the rest of the solution was slowly injected. A total of ___20___ mL of __.25___ % ___ bupivacaine was used for this block. The needle was then removed and sterile dressing was applied. Similarly, the same procedure was performed on the other side using the same medications. The patient had stable vital signs throughout and had no untoward complications after emergence from general anesthesia in the recovery room.
[2017-11-13] MEDS: HYDROmorphone 0.5 mg/0.5 ml ISec IVP PRN ×4 (20:02→20:43)
[2017-11-13] MEDS ORDERED: Labetalol 5 mg/ml Inj 20ML IVP STA (20:28)
[2017-11-13] MEDS ORDERED: Morphine 4 MG/ML VIAL IVP PRN (23:15)
[2017-11-14] MEDS: Sodium Chloride 0.9% 1,000 ML IV SCH (05:30)
[2017-11-14 06:08] LABS: HEMOGLOBIN 14.1 g/dL (12.0-18.0); MEAN CELL VOLUME 86.6 fl (80.0-94.0); MEAN CORPUSCULAR HEMOGLOBIN 28.2 pg (27.0-31.0); MEAN CORPUSCULAR HGB CONC 32.6 g/dL (33.0-37.0); RBC 5.01 Mil/uL (4.40-5.90); RED CELL DISTRIBUTION WIDTH 13.8 % (11.5-14.5); WHITE BLOOD COUNT 10.9 K/uL (4.8-10.8)
[2017-11-14 06:50] LABS: BLOOD UREA NITROGEN 9 mg/dl (9-20); CALCIUM 8.7 mg/dL (8.4-10.2); GFR AFRICAN-AMERICAN > 60; GFR NON-AFRICAN AMERICAN > 60
[2017-11-14] MEDS: Enoxaparin 40 mg Syringe SC SCH (08:56)
--- NOTE | 2017-11-14 09:37 | CP.PCM.PN ---
Subjective - Date & Time of Evaluation Date of Evaluation: 11/14/17 Time of Evaluation: 07:00 - Subjective Subjective: Patient seen and examined. No acute events over night. 1500cc UOP. Denies nausea /vomiting. Objective - Vital Signs/Intake and Output Vital Signs (last 24 hours): Temp Pulse Resp BP Pulse Ox 98.2 F 65 20 147/82 99 11/14/17 08:57 11/14/17 08:57 11/14/17 08:57 11/14/17 08:57 11/14/17 08:57 Intake and Output: 11/14/17 11/14/17 06:59 18:59 Intake Total 1200 1000 Output Total 350 1500 Balance 850 -500 - Medications Medications: Current Medications Acetaminophen (Tylenol 325mg Tab) 650 mg PO Q6 PRN PRN Reason: Fever >100.4 F Enoxaparin Sodium (Lovenox) 40 mg SC DAILY [facility] PRN Reason: Protocol Last Admin: 11/14/17 08:56 Dose: 40 mg Famotidine (Pepcid) 20 mg PO BID [facility] Last Admin: 11/14/17 09:01 Dose: Not Given Sodium Chloride (Sodium Chloride 0.9%) 1,000 mls @ 100 mls/hr IV .Q10H [facility] Last Admin: 11/14/17 05:30 Dose: Not Given Ketorolac Tromethamine (Toradol) 30 mg IVP Q6 PRN PRN Reason: Pain, severe (8-10) Last Admin: 11/12/17 19:14 Dose: 30 mg Morphine Sulfate (Morphine) 4 mg IVP Q4 PRN PRN Reason: Pain, moderate (4-7) Last Admin: 11/14/17 00:48 Dose: 4 mg Ondansetron HCl (Zofran Inj) 4 mg IVP Q6 PRN PRN Reason: Nausea/Vomiting - Labs Labs: 11/14/17 05:45 11/14/17 05:45 PT 11.4 Seconds (9.8-13.1) 11/13/17 05:30 INR 1.0 (0.9-1.2) 11/13/17 05:30 APTT 30.2 Seconds (25.6-37.1) 11/13/17 05:30 - Constitutional Appears: No Acute Distress - Head Exam Head Exam: NORMOCEPHALIC - Eye Exam Eye Exam: EOMI, Normal appearance - ENT Exam ENT Exam: Mucous Membranes Moist - Respiratory Exam Respiratory Exam: NORMAL BREATHING PATTERN - Cardiovascular Exam Cardiovascular Exam: +S1, +S2 - GI/Abdominal Exam GI & Abdominal Exam: Soft - Neurological Exam Neurological Exam: Alert, Awake, Oriented x3 - Psychiatric Exam Psychiatric exam: Normal Mood - Skin Skin Exam: Dry, Intact, Warm Assessment and Plan - Assessment and Plan (Free Text) Assessment: 52M with R colon mass s/p Right hemicolectomy with primary anastomosis POD1 Plan: -NPO -IVF -Anti-emetics/Analgesics prn -F/u IR liver biopsy -F/u colon pathology results -D/c sexton -Encourage ambulation -Encourage IS use -DVT ppx -D/w Dr. Yevgeniy Masters PGY2
--- NOTE | 2017-11-14 11:07 | PCM.IRP ---
History of Present Illness - History of Present Illness History of Present Illness: Pt with colon mass and a single liver lesion. Recommend three phase liver mass CT. Will plan on biopsy following CT scan. Objective - Vital Signs/Intake and Output Vital Signs (last 24 hours): Vital Signs - 24 hr 11/13/17 11/13/17 11/13/17 16:17 16:19 18:01 Temperature 98.3 F 97.9 F Pulse Rate 68 68 Respiratory 18 18 Rate Blood Pressure 147/84 136/84 O2 Sat by Pulse 98 98 97 Oximetry 11/13/17 11/13/17 11/13/17 19:51 20:02 20:12 Temperature 97.7 F Pulse Rate 80 79 83 Respiratory 18 18 18 Rate Blood Pressure 168/109 H 168/91 H 173/106 H O2 Sat by Pulse 100 100 100 Oximetry 11/13/17 11/13/17 11/13/17 20:20 20:43 20:45 Temperature 97.9 F Pulse Rate 75 75 80 Respiratory 18 18 18 Rate Blood Pressure 173/100 H 174/100 H 170/101 H O2 Sat by Pulse 100 100 100 Oximetry 11/13/17 11/13/17 11/13/17 21:00 21:20 21:30 Temperature 98.1 F 98.2 F Pulse Rate 77 86 83 Respiratory 18 18 19 Rate Blood Pressure 167/97 H 162/68 H 162/100 H O2 Sat by Pulse 100 100 98 Oximetry 11/13/17 11/13/17 11/14/17 22:30 23:30 00:44 Temperature 97.9 F 97.6 F 98.1 F Pulse Rate 83 80 71 Respiratory 19 18 19 Rate Blood Pressure 141/87 138/79 133/81 O2 Sat by Pulse 99 98 99 Oximetry 11/14/17 11/14/17 01:30 08:57 Temperature 98.4 F 98.2 F Pulse Rate 75 65 Respiratory 19 20 Rate Blood Pressure 132/77 147/82 O2 Sat by Pulse 99 99 Oximetry Intake and Output (last 12 hours): Intake & Output 11/13/17 11/14/17 11/14/17 18:59 06:59 18:59 Intake Total 1000 1200 1000 Output Total 819 006 9917 Balance 700 850 -500 Intake: IV 1000 1200 1000 Output: Urine 016 733 9028 Urethral (Moore) 1500 - Medications Medications: Current Medications Acetaminophen (Tylenol 325mg Tab) 650 mg PO Q6 PRN PRN Reason: Fever >100.4 F Enoxaparin Sodium (Lovenox) 40 mg SC DAILY [facility] PRN Reason: Protocol Last Admin: 11/14/17 08:56 Dose: 40 mg Potassium Chloride/Dextrose/Sod Cl (Potassium Chl 20 Meq In D5-1/2ns) 1,000 mls @ 125 mls/hr IV .Q8H [facility] Stop: 11/15/17 10:52 Morphine Sulfate (Morphine) 4 mg IVP Q4 PRN PRN Reason: Pain, moderate (4-7) Last Admin: 11/14/17 00:48 Dose: 4 mg Ondansetron HCl (Zofran Inj) 4 mg IVP Q6 PRN PRN Reason: Nausea/Vomiting Pantoprazole Sodium (Protonix Inj) 40 mg IVP DAILY [facility] - Labs Labs (last 24 hours): Laboratory Results - last 24 hr 11/14/17 11/14/17 05:45 05:45 WBC 10.9 H RBC 5.01 Hgb 14.1 Hct 43.3 MCV 86.6 MCH 28.2 MCHC 32.6 L RDW 13.8 Plt Count 208 Sodium 139 Potassium 4.6 Chloride 99 Carbon Dioxide 27 Anion Gap 18 BUN 9 Creatinine 0.9 Est GFR ( Amer) > 60 Est GFR (Non-Af Amer) > 60 Random Glucose 143 H Calcium 8.7
[2017-11-14] MEDS: Potassium Ch 20mEq in D5-1/2NS 1,000 ML IV SCH ×2 (13:23→19:00)
[2017-11-14] MEDS ORDERED: Sodium Chloride 0.9% 0 ML IV ONE (20:13)
[2017-11-14] MEDS ORDERED: Iohexol 300 100 ML IJ ONE (20:13)
[2017-11-15] MEDS: Enoxaparin 40 mg Syringe SC SCH (08:36)
[2017-11-15 12:14] LABS: ALT/SGPT 24 U/L (21-72); AST/SGOT 28 U/L (17-59); BLOOD UREA NITROGEN 8 mg/dl (9-20); CALCIUM 8.7 mg/dL (8.4-10.2); GFR AFRICAN-AMERICAN > 60; GFR NON-AFRICAN AMERICAN > 60
[2017-11-15 12:25] LABS: BASO % 0.2 % (0.0-2.0); EOS % 0.1 % (0.0-4.0); LYMPH # 1.5 K/uL (1.0-4.3); MEAN CELL VOLUME 86.2 fl (80.0-94.0); MEAN CORPUSCULAR HEMOGLOBIN 28.1 pg (27.0-31.0); MEAN CORPUSCULAR HGB CONC 32.6 g/dL (33.0-37.0); MEAN PLATELET VOLUME 8.8 fl (7.2-11.7); MONO % 8.9 % (0.0-10.0); NEUT # 8.7 K/uL (1.8-7.0); NEUT % 77.8 % (50.0-75.0); NRBC % 0.1 % (0.0-0.0); RBC 5.36 Mil/uL (4.40-5.90); RED CELL DISTRIBUTION WIDTH 13.8 % (11.5-14.5); WHITE BLOOD COUNT 11.2 K/uL (4.8-10.8)
[2017-11-15] MEDS ORDERED: Iohexol 300 100 ML IJ ONE (14:34)
[2017-11-15] MEDS ORDERED: Sodium Chloride 0.9% 50 ML IV ONE (14:34)
--- NOTE | 2017-11-15 14:45 | CP.PCM.PN ---
Subjective - Date & Time of Evaluation Date of Evaluation: 11/15/17 Time of Evaluation: 09:25 - Subjective Subjective: Surgery Progress note. Dr. Vuong Pt seen and examined at bedside. No acute events overnight. No N/V/D. States that he would like to eat. Denies any F/C. Ambulating well throughout the hospital [place]. Does report some flatus. Denies any BMs. No new complaints. Still awaiting Triple Phase Liver CT. Objective - Vital Signs/Intake and Output Vital Signs (last 24 hours): Temp Pulse Resp BP Pulse Ox 97.4 F L 56 L 20 177/94 H 98 11/15/17 08:33 11/15/17 08:33 11/15/17 08:33 11/15/17 08:33 11/15/17 08:33 - Medications Medications: Current Medications Acetaminophen (Tylenol 325mg Tab) 650 mg PO Q6 PRN PRN Reason: Fever >100.4 F Enoxaparin Sodium (Lovenox) 40 mg SC DAILY [facility] PRN Reason: Protocol Last Admin: 11/15/17 08:36 Dose: 40 mg Morphine Sulfate (Morphine) 4 mg IVP Q4 PRN PRN Reason: Pain, moderate (4-7) Last Admin: 11/15/17 08:36 Dose: 4 mg Ondansetron HCl (Zofran Inj) 4 mg IVP Q6 PRN PRN Reason: Nausea/Vomiting Pantoprazole Sodium (Protonix Inj) 40 mg IVP DAILY [facility] Last Admin: 11/15/17 08:36 Dose: 40 mg - Labs Labs: 11/15/17 11:57 11/15/17 11:57 PT 11.4 Seconds (9.8-13.1) 11/13/17 05:30 INR 1.0 (0.9-1.2) 11/13/17 05:30 APTT 30.2 Seconds (25.6-37.1) 11/13/17 05:30 - Constitutional Appears: Well, Non-toxic, No Acute Distress - Head Exam Head Exam: ATRAUMATIC, NORMAL INSPECTION, NORMOCEPHALIC - Eye Exam Eye Exam: EOMI, Normal appearance. absent: Scleral icterus - ENT Exam ENT Exam: Mucous Membranes Moist - Respiratory Exam Respiratory Exam: NORMAL BREATHING PATTERN. absent: Accessory Muscle Use, Respiratory Distress - Cardiovascular Exam Cardiovascular Exam: absent: JVD - GI/Abdominal Exam GI & Abdominal Exam: Soft. absent: Distended, Guarding, Rebound Additional comments: Midline dressing clean, dry and intact. Mild RLQ tenderness to palpation. - Extremities Exam Extremities Exam: Normal Inspection. absent: Calf Tenderness - Neurological Exam Neurological Exam: Alert, Awake, Oriented x3 - Psychiatric Exam Psychiatric exam: Normal Affect, Normal Mood - Skin Skin Exam: Dry, Intact, Normal Color, Warm Assessment and Plan - Assessment and Plan (Free Text) Assessment: 52yo M with R colon mass s/p Right hemicolectomy with primary anastomosis. POD2 Plan: - Start CLD - IVF - Anti-emetics/Analgesics prn - f/u Triple Phase Liver CT. f/u IR recs - f/u AM labs - f/u surgical specimen pathology - Encourage ambulation, OOBTC, and IS use - DVT ppx Further recs as per Dr. Yevgeniy Chaparro PGY1 surgery pager: [phone]
[2017-11-15] MEDS ORDERED: Povidone Iodine Topical 10% Sol ONE (16:00)
[2017-11-15] MEDS: Lactated Ringer's 1,000 ML IV SCH (16:47)
[2017-11-16] MEDS: Lactated Ringer's 1,000 ML IV SCH ×3 (01:51→22:11)
[2017-11-16 06:40] LABS: BASO # 0.1 K/uL (0.0-0.2); BASO % 0.7 % (0.0-2.0); EOS # 0.2 K/uL (0.0-0.7); EOS % 1.7 % (0.0-4.0); HEMOGLOBIN 15.1 g/dL (12.0-18.0); LYMPH # 2.1 K/uL (1.0-4.3); LYMPH % 22.1 % (20.0-40.0); MEAN CELL VOLUME 86.1 fl (80.0-94.0); MEAN CORPUSCULAR HEMOGLOBIN 28.5 pg (27.0-31.0); MEAN CORPUSCULAR HGB CONC 33.1 g/dL (33.0-37.0); MONO # 0.9 K/uL (0.0-0.8); MONO % 9.7 % (0.0-10.0); NEUT # 6.1 K/uL (1.8-7.0); NEUT % 65.8 % (50.0-75.0); NRBC % 0.1 % (0.0-0.0); RBC 5.28 Mil/uL (4.40-5.90); RED CELL DISTRIBUTION WIDTH 13.7 % (11.5-14.5); WHITE BLOOD COUNT 9.3 K/uL (4.8-10.8)
[2017-11-16 07:01] LABS: ALT/SGPT 27 U/L (21-72); AST/SGOT 23 U/L (17-59); BLOOD UREA NITROGEN 9 mg/dl (9-20); CALCIUM 9.1 mg/dL (8.4-10.2); GFR AFRICAN-AMERICAN > 60; GFR NON-AFRICAN AMERICAN > 60
[2017-11-16 07:16] LABS: ALB/GLOB RATIO 1.2 (1.0-2.1); ALBUMIN 3.9 g/dL (3.5-5.0)
[2017-11-16] MEDS: Enoxaparin 40 mg Syringe SC SCH (09:26)
--- NOTE | 2017-11-16 12:03 | CP.PCM.PN ---
Subjective - Date & Time of Evaluation Date of Evaluation: 11/16/17 Time of Evaluation: 07:00 - Subjective Subjective: Patient seen and examined. No acute events over night. Tolerating clears. Passing flatus. Abdominal packing changed. Objective - Vital Signs/Intake and Output Vital Signs (last 24 hours): Temp Pulse Resp BP Pulse Ox 98.1 F 80 20 158/95 H 97 11/16/17 08:47 11/16/17 08:47 11/16/17 08:47 11/16/17 08:47 11/16/17 08:47 - Medications Medications: Current Medications Acetaminophen (Tylenol 325mg Tab) 650 mg PO Q6 PRN PRN Reason: Fever >100.4 F Enoxaparin Sodium (Lovenox) 40 mg SC DAILY [facility] PRN Reason: Protocol Last Admin: 11/16/17 09:26 Dose: 40 mg Lactated Ringer's (Lactated Ringer's) 1,000 mls @ 100 mls/hr IV .Q10H [facility] Last Admin: 11/16/17 01:51 Dose: 100 mls/hr Ondansetron HCl (Zofran Inj) 4 mg IVP Q6 PRN PRN Reason: Nausea/Vomiting Oxycodone/Acetaminophen (Percocet 5/325 Mg Tab) 1 tab PO Q4 PRN PRN Reason: Pain, moderate (4-7) Stop: 11/19/17 12:00 Pantoprazole Sodium (Protonix Inj) 40 mg IVP DAILY [facility] Last Admin: 11/16/17 09:26 Dose: 40 mg - Labs Labs: 11/16/17 05:30 11/16/17 05:30 PT 11.4 Seconds (9.8-13.1) 11/13/17 05:30 INR 1.0 (0.9-1.2) 11/13/17 05:30 APTT 30.2 Seconds (25.6-37.1) 11/13/17 05:30 - Constitutional Appears: No Acute Distress - Head Exam Head Exam: NORMOCEPHALIC - Eye Exam Eye Exam: Normal appearance - ENT Exam ENT Exam: Mucous Membranes Moist - Respiratory Exam Respiratory Exam: NORMAL BREATHING PATTERN - Cardiovascular Exam Cardiovascular Exam: +S1, +S2 - GI/Abdominal Exam GI & Abdominal Exam: Soft - Neurological Exam Neurological Exam: Alert, Awake, Oriented x3 - Psychiatric Exam Psychiatric exam: Normal Mood - Skin Skin Exam: Dry, Intact, Warm Assessment and Plan - Assessment and Plan (Free Text) Assessment: 52yo M with R colon mass s/p Right hemicolectomy with primary anastomosis. POD3 Plan: - Full liquid - Anti-emetics/Analgesics prn - f/u Triple Phase Liver CT. F/u IR recs - f/u surgical specimen pathology - Encourage ambulation, OOBTC, and IS use - DVT ppx Further recs as per Dr. Yevgeniy Masters PGY2
[2017-11-16] MEDS: Oxycodone/Acetaminophen 5/325 mg Tab PO PRN ×2 (16:04→23:22)
[2017-11-17] MEDS: Lactated Ringer's 1,000 ML IV SCH (03:36)
[2017-11-17 08:30] VITALS: BP 155/99; PULSE 93; RESP 18; TEMP 98.2; O2SAT 97
--- NOTE | 2017-11-17 08:48 | CT ---
PROCEDURE: CT Abdomen and Pelvis with contrast HISTORY: s/p R hemicolectomy, single liver lesion COMPARISON: Abdomen and pelvis CT with contrast 11/08/2017. TECHNIQUE: Following the intravenous administration of iodinated contrast material, a CT examination of the abdomen and pelvis performed from the domes of the diaphragms to the symphysis pubis with reformatted datasets provided not only axial but also sagittal and coronal planes. Oral contrast was not administered as per referring physician request. Contrast dose: Omnipaque 300, 95 cc Radiation dose: Total exam DLP = 1097.00 mGy-cm. This CT exam was performed using one or more of the following dose reduction techniques: Automated exposure control, adjustment of the mA and/or kV according to patient size, and/or use of iterative reconstruction technique. FINDINGS: LOWER THORAX: Unremarkable. LIVER: There is a poorly enhancing lesion at the right lobe liver measuring 2.1 x 2.4 cm. A limited enhances seen the periphery however there in the pattern is not typical for a specific benign hepatic lesion and malignancy is not excluded. Tissue diagnosis is advised. If additional imaging is required, then consider possible MRI with and without intravenous gadolinium or PET-CT. The remainder of the liver is unremarkable appearing. GALLBLADDER AND BILE DUCTS: Unremarkable. PANCREAS: Unremarkable. No gross lesion or ductal dilatation. SPLEEN: Unremarkable. ADRENALS: Unremarkable. No mass. KIDNEYS AND URETERS: A punctate intrarenal calculus identified in the upper pole left kidney with a 2nd at the lower pole left kidney. Solitary intrarenal calculus lower pole right kidney. No additional radiodense urolithiasis. No obstructive uropathy bilaterally or perinephric reaction. VASCULATURE: Unremarkable. No aortic aneurysm. BOWEL: Patient status post right hemicolectomy with anastomotic suture line unremarkable appearing at the mid transverse colon region at the central abdomen. Liquified fecal material seen at the remaining colon suggestive diarrhea. APPENDIX: Status post right hemicolectomy. PERITONEUM: No ascites however free intrarenal gas is again identified mildly throughout the abdomen as well as of the right retroperitoneum status post right hemicolectomy, felt be postoperative in etiology. Clinically correlate. Consider follow-up abdomen radiography. LYMPH NODES: Unremarkable. No enlarged lymph nodes. BLADDER: Trace gas is seen the lumen which may reflect recent instrumentation. Clinically correlate. REPRODUCTIVE: Mildly enlarged prostate gland noted. BONES: No acute fracture. OTHER FINDINGS: None. IMPRESSION: 1. 2.4 cm mass right hepatic lobe with enhancing characteristics which fail to exclude malignancy. Follow-up tissue diagnosis recommended. 2. Status post right hemicolectomy with anastomotic suture line appear unremarkable but limited by lack of oral contrast. [id number] free a peritoneal gas felt to be a representation of postoperative change rather than bowel perforation or dehiscence of anastomosis. Consider follow-up radiography. 3. Liquified fecal material remaining large bowel suggest diarrhea. 4. No significant lymphadenopathy appreciated grossly. 5. Nonobstructing intrarenal calculi bilateral kidneys. Concordant preliminary report from [facility], 11/15/2017.
[2017-11-17] MEDS: Enoxaparin 40 mg Syringe SC SCH (10:05)
--- NOTE | 2017-11-17 12:29 | CP.PCM.DIS ---
Provider - Provider Date of Admission: 11/12/17 10:07 Attending physician: Justino Vuong MD Primary care physician: Dr. Vuong Time Spent in preparation of Discharge (in minutes): 30 Hospital Course - Lab Results Lab Results: Most Recent Lab Values WBC 9.3 K/uL (4.8-10.8) 11/16/17 05:30 RBC 5.28 Mil/uL (4.40-5.90) 11/16/17 05:30 Hgb 15.1 g/dL (12.0-18.0) 11/16/17 05:30 Hct 45.4 % (35.0-51.0) 11/16/17 05:30 MCV 86.1 fl (80.0-94.0) 11/16/17 05:30 MCH 28.5 pg (27.0-31.0) 11/16/17 05:30 MCHC 33.1 g/dL (33.0-37.0) 11/16/17 05:30 RDW 13.7 % (11.5-14.5) 11/16/17 05:30 Plt Count 237 K/uL (130-400) 11/16/17 05:30 MPV 9.0 fl (7.2-11.7) 11/16/17 05:30 Neut % (Auto) 65.8 % (50.0-75.0) 11/16/17 05:30 Lymph % (Auto) 22.1 % (20.0-40.0) 11/16/17 05:30 [place] % (Auto) 9.7 % (0.0-10.0) 11/16/17 05:30 Eos % (Auto) 1.7 % (0.0-4.0) 11/16/17 05:30 Baso % (Auto) 0.7 % (0.0-2.0) 11/16/17 05:30 Neut # (Auto) 6.1 K/uL (1.8-7.0) 11/16/17 05:30 Lymph # (Auto) 2.1 K/uL (1.0-4.3) 11/16/17 05:30 [place] # (Auto) 0.9 K/uL (0.0-0.8) H 11/16/17 05:30 Eos # (Auto) 0.2 K/uL (0.0-0.7) 11/16/17 05:30 Baso # (Auto) 0.1 K/uL (0.0-0.2) 11/16/17 05:30 PT 11.4 Seconds (9.8-13.1) 11/13/17 05:30 INR 1.0 (0.9-1.2) 11/13/17 05:30 APTT 30.2 Seconds (25.6-37.1) 11/13/17 05:30 Sodium 139 mmol/l (132-148) 11/16/17 05:30 Potassium 4.0 MMOL/L (3.6-5.0) 11/16/17 05:30 Chloride 101 mmol/L (98-107) 11/16/17 05:30 Carbon Dioxide 28 mmol/L (22-30) 11/16/17 05:30 Anion Gap 14 (10-20) 11/16/17 05:30 BUN 9 mg/dl (9-20) 11/16/17 05:30 Creatinine 0.8 mg/dl (0.8-1.5) 11/16/17 05:30 Est GFR ( Amer) > 60 11/16/17 05:30 Est GFR (Non-Af Amer) > 60 11/16/17 05:30 Random Glucose 98 mg/dL (75-110) 11/16/17 05:30 Calcium 9.1 mg/dL (8.4-10.2) 11/16/17 05:30 Phosphorus 3.8 mg/dl (2.5-4.5) 11/13/17 05:30 Magnesium 2.1 MG/DL (1.6-2.3) 11/13/17 05:30 Total Bilirubin 1.1 mg/dl (0.2-1.3) 11/16/17 05:30 AST 23 U/L (17-59) 11/16/17 05:30 ALT 27 U/L (21-72) 11/16/17 05:30 Alkaline Phosphatase 57 U/L (38-126) 11/16/17 05:30 Total Protein 7.3 G/DL (6.3-8.2) 11/16/17 05:30 Albumin 3.9 g/dL (3.5-5.0) 11/16/17 05:30 Globulin 3.4 gm/dL (2.2-3.9) 11/16/17 05:30 Albumin/Globulin Ratio 1.2 (1.0-2.1) 11/16/17 05:30 Urine Color Mayra (YELLOW) 11/12/17 12:22 Urine Clarity Cloudy (Clear) 11/12/17 12:22 Urine pH 6.0 (5.0-8.0) 11/12/17 12:22 Ur Specific [place] 1.016 (1.003-1.030) 11/12/17 12:22 Urine Protein Negative mg/dL (NEGATIVE) 11/12/17 12:22 Urine Glucose (UA) Neg mg/dL (Normal) 11/12/17 12:22 Urine Ketones Negative mg/dL (NEGATIVE) 11/12/17 12:22 Urine Blood Negative (NEGATIVE) 11/12/17 12:22 Urine Nitrate Negative (NEGATIVE) 11/12/17 12:22 Urine Bilirubin Negative (NEGATIVE) 11/12/17 12:22 Urine Urobilinogen 0.2-1.0 mg/dL (0.2-1.0) 11/12/17 12:22 Ur Leukocyte Esterase Neg Eliu/uL (Negative) 11/12/17 12:22 Urine RBC (Auto) 3 /hpf (0-3) 11/12/17 12:22 Urine Microscopic WBC 4 /hpf (0-5) 11/12/17 12:22 Urine Yeast (Budding) Occ /hpf (NEGATIVE) H 11/12/17 12:22 Blood Type A POSITIVE 11/12/17 09:40 Antibody Screen Negative 11/12/17 09:40 BBK History Checked No verified bt 11/12/17 09:40 - Hospital Course Hospital Course: 52 year old male with no significant PMHx initially presented to [facility] on with intermitted RLQ pain for 2 weeks. During hospital course patient had a colonoscopy which revealed a nearly obstructing mass at the ileocecal junction. Patient left AMA and returned to ED on 11/12/17 complaining of continued abdominal pain. Patient was taken to the OR on 11/13/17 for open right hemicolectomy with primary anastamosis. Patient was found to have a hepatic lesion on CT; IR was consulted for possible liver biopsy r/o malignancy. Patient tolerated diet and underwent an unremarkable recovery while in house. Patient is stable for discharge home. Patient is to follow up with Dr. Collado in 7-10 days for US guided liver biopsy. Discharge Exam - Head Exam Head Exam: ATRAUMATIC, NORMAL INSPECTION, NORMOCEPHALIC - Eye Exam Eye Exam: EOMI, Normal appearance Pupil Exam: NORMAL ACCOMODATION - ENT Exam ENT Exam: Mucous Membranes Moist - Neck Exam Neck exam: Full Rom, Normal Inspection - Respiratory Exam Respiratory Exam: NORMAL BREATHING PATTERN, UNREMARKABLE. absent: Respiratory Distress - Cardiovascular Exam Cardiovascular Exam: REGULAR RHYTHM - GI/Abdominal Exam GI & Abdominal Exam: Soft, Unremarkable Additional comments: Midline dressing clean/dry/intact ND, NT - Extremities Exam Extremities exam: full ROM, normal inspection - Neurological Exam Neurological exam: Alert, Oriented x3 - Psychiatric Exam Psychiatric exam: Normal Affect, Normal Mood - Skin Skin Exam: Dry, Intact, Normal Color, Warm Discharge Plan - Follow Up Plan Condition: STABLE Disposition: HOME/ ROUTINE Instructions: Colectomy, Open Surgery Additional Instructions: follow up with Dr. Vuong 5-7 days, follow up with Dr. Collado 7-10 days for liver biopsy Referrals: [facility] [Outside] Justino Vuong MD [Staff Provider] -
--- NOTE | 2017-11-19 02:37 | OP ---
PROCEDURE DATE: 11/13/2017 PREOPERATIVE DIAGNOSIS: Right colon cancer. POSTOPERATIVE DIAGNOSIS: Right colon cancer. SURGERY: Right colectomy. SURGEON: Justino Vuong MD TYPE OF ANESTHESIA: General endotracheal. DESCRIPTION OF THE PROCEDURE: The patient was brought into the operating room and placed on the operating room table in supine position. After smooth induction of general endotracheal anesthesia, Venodyne boots were placed in the both legs, and prophylactic antibiotics were given. Entire abdomen was prepped and draped in the usual sterile fashion. Using a 15-blade, a mid supra and infraumbilical midline incision was performed and brought down to subcutaneous tissue using Bovie electrocautery. The linea alba was then identified and incised, and the peritoneal cavity was accessed. The cancer which was in the ascending colon was identified. Then, the attachments of the right colon to the lateral abdominal wall were taken down in sharp and blunt fashion following the cord over the hepatic flexure and up to the mid transverse colon freeing the colon from the omentum. A ASHLEY 75 blue stapler was fired across the terminal ileum close to the ileocecal valve, and reload was fired across the proximal transverse colon. The corresponding mesocolon was secured in sequential fashion using a 10-mm LigaSure. The specimen was removed from the operating field and sent to Pathology, appropriately labeled for permanent sections. The wound of the abdomen was irrigated with warm normal saline. There was no evidence of bleeders from the retroperitoneum. A [id number] stapled anastomosis was performed between the terminal ileum and the proximal transverse colon using a ASHLEY 75 blue stapler with opening between the two bowels, closed with a TA 60 stapler. The staple lines were reinforced with interrupted 0 silk sutures. The abdominal wall was closed with continuous nylon #1 loop PDS, and eligio were used for the skin, which was left partly open with openings between the eligio packed with 1-inch iodoform gauze. Sterile dressings were applied. At the end of the surgery, the counts of the instruments, gauze, and needles were correct x2. The patient tolerated the surgery well and was transferred in stable condition to the recovery room. Justino Vuong MD
== END 2017-11-17 15:05 | disposition home or self-care (01) | DRG 149 ==
LOC: H.ER 08:42 → H.ERHOLD 10:07 → H.MEDSURG1 12:39
PROVIDERS: ADMIT Specialist; ATTEND Specialist
PROC: 0DTF0ZZ Resection of Right Large Intestine, Open Approach (ICD-10-PCS; principal; 2017-11-13 16:00)
PROC: 3E0T3BZ Introduction of Anesthetic Agent into Peripheral Nerves and Plexi, Percutaneous Approach (ICD-10-PCS; 2017-11-13 16:00)
DX: C18.2 Malignant neoplasm of ascending colon (principal); K76.9 Liver disease, unspecified; Z72.0 Tobacco use; K59.00 Constipation, unspecified

== ENCOUNTER 2017-12-07 09:51 | Day surgery (SDC) | payer MEDICAID, SELFPAY ==
[2017-12-07] MEDS ORDERED: Lactated Ringer's 1,000 ML IV ONE (10:22)
[2017-12-07 11:35] LABS: BASO % 0.6 % (0.0-2.0); EOS # 0.2 K/uL (0.0-0.7); HEMOGLOBIN 13.8 g/dL (12.0-18.0); LYMPH # 1.2 K/uL (1.0-4.3); LYMPH % 29.3 % (20.0-40.0); MEAN CELL VOLUME 84.8 fl (80.0-94.0); MEAN CORPUSCULAR HEMOGLOBIN 28.6 pg (27.0-31.0); MEAN CORPUSCULAR HGB CONC 33.7 g/dL (33.0-37.0); MEAN PLATELET VOLUME 7.9 fl (7.2-11.7); MONO # 0.4 K/uL (0.0-0.8); MONO % 10.5 % (0.0-10.0); NEUT # 2.3 K/uL (1.8-7.0); NEUT % 55.6 % (50.0-75.0); NRBC % 0.2 % (0.0-0.0); RBC 4.82 Mil/uL (4.40-5.90); RED CELL DISTRIBUTION WIDTH 13.8 % (11.5-14.5); WHITE BLOOD COUNT 4.1 K/uL (4.8-10.8)
[2017-12-07] MEDS ORDERED: Sodium Chloride 0.9% 100 ML ONE (11:39)
[2017-12-07 11:45] LABS: PARTIAL THROMBOPLASTIN TIME 30.9 Seconds (25.6-37.1); PROTHROMBIN TIME 10.5 Seconds (9.8-13.1)
[2017-12-07] MEDS ORDERED: LIDOCAINE 2% 10ML 20 MG/ML VIAL IJ ONE (12:08)
[2017-12-07] MEDS ORDERED: Absorbable Gelatin Sponge Size 12-7 ONE (12:08)
[2017-12-07] MEDS ORDERED: Sodium Chloride 0.9% 50 ML IV ONE (12:09)
[2017-12-07] MEDS ORDERED: Midazolam 2 MG/2 ML VIAL ONE (12:13)
[2017-12-07 12:18] VITALS: RESP 18
[2017-12-07] MEDS ORDERED: Sodium Chloride 0.9% 1,000 ML IV ONE (12:40)
[2017-12-07] MEDS ORDERED: HYDROmorphone 0.5 mg/0.5 ml ISec IVP PRN (12:47)
--- NOTE | 2017-12-07 12:47 | CP.SDSHP ---
Same Day Surgery H & P - History Proposed Procedure: CT guided core biopsy liver mass Pre-Op Diagnosis: Metastatic colon cancer - Allergies Allergies: Allergies No Known Allergies Allergy (Verified 12/07/17 10:25) - Physical Exam Vital Signs: Vital Signs 12/07/17 12/07/17 10:20 12:16 Temperature 98.7 F 98.1 F Pulse Rate 68 73 Respiratory 15 18 Rate Blood Pressure 113/69 148/98 H O2 Sat by Pulse 98 100 Oximetry Mental Status: Alert & Oriented x3 Neuro: WNL Heart: WNL Lungs: WNL GI: WNL - Impression Impression: Pt with colon cancer and lesion in right hepatic lobe. Plan CT guided core biopsy. Informed consent obtained. Pt. Evaluated Today:Candidate for Anesthesia & Procedure: Yes (ASA 3 Malampati 3) - Date & Time Date: 12/07/17 Time: 12:00 Short Stay Discharge - Short Stay Discharge Admitting Diagnosis/Reason for Visit: COLON CA Referrals: Wenceslao Morocho MD [Primary Care Provider] -
--- NOTE | 2017-12-07 12:49 | PCM.SURG1 ---
Surgeon's Initial Post Op Note - Surgeon's Notes Surgeon: Hayden Ruiz MD Firer Automatic Stoker: NONE Type of Anesthesia: IV Sedation, Local Pre-Operative Diagnosis: Metastatic colon cancer Operative Findings: CT showed poorly defined lesion right hepatic lobe. This is confirmed with real time ultrasound. Post-Operative Diagnosis: Metastatic colon cancer Operation Performed: Right liver mass biopsy. Under CT and Ultrasound guidance , an 18 g needle was advanced into the mass and six 18-gauge core specimen obtained. Biopsy tract embolized with gelfoam Specimen/Specimens Removed: 18 gauge core x 6 Estimated Blood Loss: EBL {In ML}: 1 Blood Products Given: N/A Drains Used: No Drains Post-Op Condition: Fair Date of Surgery/Procedure: 12/07/17 Time of Surgery/Procedure: 12:40
[2017-12-07] MEDS ORDERED: Sodium Chloride 0.9% 1,000 ML IV SCH (13:00)
[2017-12-07 13:43] VITALS: BP 130/76; PULSE 62; TEMP 97.4; O2SAT 98
--- NOTE | 2017-12-08 12:18 | CT ---
PROCEDURE: Date of procedure: 12/07/2017 Procedure: 1. CT-guided percutaneous core biopsy of liver mass, CPT [address] guidance for biopsy, CPT 95197 Medications: The patient was sedated by the anesthesiologist with IV sedation and monitoring, 5 cc 1% lidocaine. Radiation: 1007.98 mGy-cm HISTORY: liver mass, colon cancer TECHNIQUE: Following informed consent, the Pt's Abdomen was marked. The Pt was placed supine on the CT table and procedure time out was performed. A noncontrast CT scan confirmed the presence of an ill defined 2.6 cm hypodense lesion within the right hepatic lobe. A skin localizer was placed on the patient's abdomen and a repeat CT scan performed. The position of the mass was confirmed with ultrasound as well. The skin was prepped and draped in the usual sterile fashion. After the patient was sedated by anesthesiologist and the skin anesthetized with 1% lidocaine, an 18 gauge core needle was advanced percutaneously under direct CT guidance into the mass. Upon confirmation of needle position, three core specimens were obtained and sent for routine pathology. The biopsy track was then embolized with Gelfoam. A post biopsy CT scan performed showed no hematoma. A dressing was applied. IMPRESSION: CT-guided core biopsy of right liver mass.
== END 2017-12-07 15:00 | disposition home or self-care (01) ==
LOC: H.OPSURG 09:51
PROVIDERS: ATTEND Specialist
DX: C18.9 Malignant neoplasm of colon, unspecified (principal)
CPT/HCPCS: 36415; 47000; 76942; 77012; 85025; 85610; 85730; 88305; 88307; J2250; J3010; J7030; J7120